=== PATIENT | male | born 1970 | race Caucasian/White ===

== ENCOUNTER 2021-02-22 08:42 | Outpatient (CLI) | payer OTHER, SELFPAY ==
--- NOTE | ~2021-02-22 | CT_ITS ---
EXAMINATION: CT abdomen pelvis w con INDICATION: Pancreatic mass TECHNIQUE: Computed tomographic images of the abdomen and pelvis were obtained after the administrati on of 100 cc of Omnipaque 350 intravenous contrast. The dose-length product (DLP) was 391.90 mGy-cm. Automated exposure control and iterative reconstruction technique were employed. COMPARISON: 07/27/2018 FINDINGS: There is small to moderate size right pleural effusion. The heart size is normal. Passive a telectasis in the right lower lobe. There is an ill-defined mass in the head of the pancreas measurin g approximately 2.5 x 2.4 cm. There is chronic thrombosis of the portal vein with multiple upper abdo snehal collaterals. A 1.6 cm lesion of the left hepatic lobe previously measured 2.9 cm the gallbladde r, spleen, and adrenal glands are normal. The kidneys are unremarkable. There is a moderate volume of ascites. No pathologically enlarged abdominal or pelvic lymph nodes are identified. There is no free intraperitoneal gas or evidence of bowel obstruction. Colonic diverticulosis is present without evid ence of diverticulitis. There are bridging osteophytes at multiple levels in the spine, consistent wi th diffuse idiopathic skeletal hyperostosis (DISH). IMPRESSION: 1. Pancreatic head mass with slight decrease in size, likely adenocarcinoma. 2. Chronic portal vein thrombosis. 3. Left hepatic lobe mass with slight decrease in size, consistent with metastatic disease. Reviewed, dictated and finalized at location B. IMPRESSION: 1. Pancreatic head mass with slight decrease in size, likely adenocarcinoma. 2. Chronic portal vein thrombosis. 3. Left hepatic lobe mass with slight decrease in size, consistent with metasta tic disease.
[2021-02-22 09:07] LABS: Prothrombin Time 54.5 Seconds (11.1-14.7)
[2021-02-22 10:05] LABS: INR 6.5
== END 2021-02-22 08:43 | disposition home or self-care (01) ==
LOC: ANHIMG 08:43
PROVIDERS: PCP Family Medicine; Visit Provider Physician Assistant
DX: K86.89 Other specified diseases of pancreas (principal); I81 Portal vein thrombosis
CPT/HCPCS: 36415; 74177; 85610; Q9967

== ENCOUNTER 2021-02-22 11:19 | Emergency (ER) | payer OTHER, SELFPAY ==
[2021-02-22] VITALS (10 sets, daily range): BP systolic 88–99; BP diastolic 60–73; PULSE 89–112; RESP 16–18; TEMP 36.2–36.8; O2SAT 99–100
--- NOTE | 2021-02-22 13:01 | ED.RECABL ---
HPI - Recheck/Abnormal Lab/Rx General Chief Complaint: Recheck/Abnormal Lab/Rx Stated Complaint: abnormal labs and CT scan Time Seen by Provider: 02/22/21 12:26 Source: patient Mode of arrival: ambulatory Limitations: no limitations History of Present Illness HPI narrative: 50-year-old male Patient had outpatient labs done His understanding is that his PCPs office directed him to come to the ER for evaluation because his INR was 6.5 He does not take Coumadin, he takes Xarelto He takes Xarelto because Center started him on it 3 years ago after he was admitted there for pancreatitis He had stents that were removed a year and a half ago To the best of his knowledge she has never actually had DVT, PE, or atrial fibrillation, etc. He is not having any unusual bleeding or bruising that he does not usually have Additionally on his labs from a couple days ago he had a modest anemia and a low potassium and a modest bump in his bilirubin He had a CT scan earlier today that showed a possible mass in the head of the pancreas and the liver which were possibly consistent with adenocarcinoma however both were smaller compared to prior study done here 2 years ago He has not been drinking for several months but has not been completely abstinent since his Center stay Related Data Allergies Allergy/AdvReac Type Severity Reaction Status Date / Time amoxicillin Allergy Unknown Confusion Verified 02/22/21 12:25 Review of Systems Review of Systems: All systems reviewed & are unremarkable except as noted in HPI and below Constitutional: Constitutional: Denies chills, Reports fatigue, Denies fever(s), Denies headache(s) and Reports weakness Comments: Weight loss Eyes: Eyes: Reports no additional eye complaints and Denies change in vision ENT: Denies headache(s) and Denies sore throat Cardiovascular: Cardiovascular: Denies chest pain and Denies dyspnea Respiratory: Respiratory: Denies cough and Denies dyspnea Gastrointestinal: Gastrointestinal: Denies abdominal pain, Denies bloating, Denies diarrhea, Reports nausea and Denies vomiting Comments: Poor appetite Genitourinary: Genitourinary: Denies dysuria and Denies urinary frequency Musculoskeletal: Musculoskeletal: Reports myalgias, Denies deformity, Denies arthralgias, Denies joint swelling and Denies numbness Integumentary/Breasts: Skin/Breast: Denies rash and Denies wounds Neurologic: Denies headache(s), Denies focal weakness and Denies numbness Psychiatric: Psychiatric: Reports no additional psychiatric complaints Endocrine: Endocrine: Reports no additional endocrine complaints Hematologic/Lymphatic: Hematologic/Lymphatic: Reports no additional hematologic/lymphatic complaints Allergic/Immunologic: Allergic/Immunologic: Reports no additional allergic/immunologic complaints [facility] Past Medical History Medical History (Updated 02/22/21 @ 16:01 by Cristo Naylor MD) Alcohol abuse GERD with esophagitis History of pancreatitis Malnutrition Portal vein thrombosis Social History Social History (Updated 02/20/21 @ 10:56 by Greta Espino [facility]) Smoking status: Never smoker Alcohol intake: current Drinks per week: 1 Substance use: never Substance use type: does not use Gender identity (if verbalized by the patient): Male Exam Const: General: cooperative, no acute distress and alert Orientation/consciousness: patient oriented x3 (alert) HENMT: Head: normal to inspection, normocephalic, atraumatic, no contusions and no hematomas Ears: external ears normal General nose exam: no epistaxis Eyes: Conjunctivae: conjunctivae normal EOM: EOMs intact bilaterally Neck: Neck: normal visual inspection, supple and no JVD Resp: Effort & Inspection: normal respiratory effort and not labored Auscultation: clear to auscultation bilaterally, no rales, no rhonchi, no wheezes and other (BS =) Cardio: Rate: regular rate Rhythm: regular rhythm Heart sounds: no mu
[2021-02-22 14:14] LABS: Basophils Absolute Auto 0.1 K/mm3 (0.0-0.1); Basophils Percent Auto 1.5 % (0.2-1.2); Hematocrit 29.9 % (42.0-52.0); Immature Granulocyte Absolute 0.01 K/mm3 (0.00-0.031); Immature Granulocyte Percent A 0.2 % (0-0.5); Lymphocytes Absolute Auto 1.22 K/mm3 (0.9-3.2); Lymphocytes Percent Auto 30.3 % (18.3-44.2); Mean Corpuscular HGB Conc 33.4 g/dl (32-36); Mean Corpuscular Hemoglobin 32.9 pg (26-34); Mean Corpuscular Volume 98.4 fl (80-100); Mean Platelet Volume 9.2 fl (7.4-10.4); Monocytes Absolute Auto 0.7 K/mm3 (0.1-0.6); Monocytes Percent Auto 16.6 % (2.6-8.5); Neutrophils Percent Auto 50.4 % (45.5-73.1); Platelet Count Result 180 k/mm3 (150-375); Red Blood Count 3.04 M/mm3 (4.6-6.20); Red Cell Distribution Width 15.9 % (11.5-14.5)
[2021-02-22 14:42] LABS: Alanine Aminotransferase 17 U/L (4-50); Alkaline Phosphatase 152 U/L (38-126); Anion Gap 5 mmol/L (8-16); Aspartate Amino Transferase 55 U/L (17-59); Bilirubin,Total 2.2 mg/dL (0.2-1.3); Blood Urea Nitrogen 8 mg/dL (9-20); Calcium 8.5 mg/dL (8.4-10.2); Carbon Dioxide 32 mmol/L (22-30); Chloride 94 mmol/L (98-107); Estimated CRCL calculation 122 ml/min; Estimated Glomerular Filt Rate > 60; Glucose 133 mg/dL (65-110); Lipase 154 U/L (23-300); Magnesium 1.4 mg/dL (1.6-2.3); Potassium 2.8 mmol/L (3.4-5.0); Sodium 131 mmol/L (137-145)
[2021-02-22] MEDS: LACTATED RINGERS 1,000 ML 999 ML IV CONT (14:45)
[2021-02-22] MEDS: POTASSIUM CHLORIDE 20 MEQ PACKET (FOR LIQUID) 40 MEQ PO (14:45)
--- NOTE | 2021-02-22 16:00 | PC.NURSE ---
Patient called out to report pain with potassium infusion. Infusion noted to be running at 100ml/hr. Rate was decreased to 75ml/hr at this time. He reports decrease in pain after infusion rated decreased. Patient informed that infusion end time has been extended due to decreasing the rate for comfort. Patient reported that he was told it would only take two hours for the infusion and would like infusion done quickly so he can leave. I explained that for this infusion to end in the original 2 hour time frame, the rated would have needed to have been running at 130ml/hr but prior to me coming into the room another nurse had already decreased the rate to 100ml/hr and I had to decrease the rate to 75ml/hr for his comfort at this time. He was also informed that, due to the high risk nature of the potassium infusion, his safety, and his comfort, we are limited in how fast these fluids can infuse
--- NOTE | 2021-02-22 16:23 | PC.NURSE ---
Potassium drip lowered at 1506 after thiamine drip was completed for pt comfort. Unable to chart back in time before Alvaro PEREZ made his documentation in [facility].
== END 2021-02-22 18:12 | disposition home or self-care (01) ==
PROVIDERS: Emergency Provider Emergency Medicine; PCP Family Medicine
DX: E87.6 Hypokalemia (principal); K90.9 Intestinal malabsorption, unspecified; Z87.19 Personal history of other diseases of the digestive system; Z79.01 Long term (current) use of anticoagulants
CPT/HCPCS: 36415; 74177; 80053; 83690; 83735; 85025; 85610; 96365; 96366; 96367; 99284; A9270; J3411; J3480; J7060; J7120; Q9967

== ENCOUNTER 2021-05-03 13:31 | Inpatient (IN) | payer OTHER, SELFPAY ==
[2021-05-03] VITALS (9 sets, daily range): BP systolic 91–110; BP diastolic 60–90; PULSE 117–147; RESP 14–20; TEMP 36.8–38.1; O2SAT 95–100; BMI 18.3
--- NOTE | ~2021-05-03 | XR_ITS ---
EXAMINATION: XR chest 1V portable DATE: 05/03/2021 14:24 INDICATION: Weakness. TECHNIQUE: A single frontal view of the chest was obtained. COMPARISON: CT abdomen and pelvis 02/22/2021 FINDINGS: There is a moderate-sized right pleural effusion. There are airspace opacities at right kem g base. No pneumothorax. The heart size is normal. IMPRESSION: 1. Moderate-sized right pleural effusion again seen. 2. Airspace opacities at right lung base, likely atelectasis. Reviewed, dictated and finalized at location A.
--- NOTE | ~2021-05-03 | US_ITS ---
EXAMINATION: US paracentesis abd w/image DATE: 05/04/2021 11:41 INDICATION: Cirrhosis and ascites TECHNIQUE: The procedure and its risks and benefits were discussed with the patient. Potential risks discussed included bleeding and infection. The skin was prepared and draped in sterile fashion. 1% li docaine was used for local anesthesia. Under ultrasound guidance, a 5 Fr catheter with trochar was ad vanced into the ascites in the right lower quadrant. Fluid was aspirated into vacuum bottles. The cat heter was removed, and a dressing was applied. There were no immediate complications. FINDINGS: Ultrasound images demonstrate ascites and the catheter within the fluid. IMPRESSION: 1. Successful ultrasound-guided paracentesis yielding 4200 mL of clear yellow fluid. Reviewed, dictated and finalized at location A.
--- NOTE | ~2021-05-03 | CT_ITS ---
EXAMINATION: CT abdomen pelvis w con DATE: 05/03/2021 14:58 INDICATION: Liver failure TECHNIQUE: Computed tomography (CT) of the abdomen and pelvis was performed with 100 cc Omnipaque 350 intravenous contrast. The dose-length product was 486.59 mGy-cm. Automated exposure control and iter ative reconstruction technique were employed. COMPARISON: Comparison to multiple prior studies sequentially, with oldest reviewed study dated 07/27. FINDINGS: There is cirrhosis of the liver with diffuse fatty infiltration. There is moderate ascites. There is a complicated cystic pancreatic head mass which is ill-defined. There is chronic portal vei n thrombosis with cavernous transformation. The previously visualized hypoenhancing mass of the left hepatic lobe is not well demonstrated on the current study. The spleen, adrenal glands and kidneys ar e unremarkable. There is diverticulosis without evidence for diverticulitis. No significant lymphaden opathy. No free air. No focal lytic or blastic lesion. There is a moderate right pleural effusion. Ri ght basilar compressive atelectasis. Heart size is normal. No evidence for aortic aneurysm or dissect ion. Nonobstructive bowel gas pattern. There is diffuse edema of the gastric wall, nonspecific. Canno t exclude gastritis. IMPRESSION: 1. Cirrhosis of the liver with diffuse fatty infiltration. Chronic portal vein thrombosis with cavern ous transformation. 2: Moderate ascites. 3: Complex ill-defined cystic mass of the pancreatic head, suspicious for adenocarcinoma. 4: Moderate right pleural effusion with underlying compressive atelectasis. Reviewed, dictated and finalized at location B. IMPRESSION: 1. Cirrhosis of the liver with diffuse fatty infiltration. Chronic portal vein thrombosis with cavernous transformation. 2: Moderate ascites. 3: Complex ill-defined cystic mass of the pancreatic head, suspicious for adeno carcinoma. 4: Moderate right pleural effusion with underlying compressive atelectasis.
--- NOTE | ~2021-05-03 | US_ITS ---
EXAMINATION: US paracentesis abd w/image DATE: 05/07/2021 13:36 INDICATION: Ascites. TECHNIQUE: The procedure and its risks, benefits, and alternatives were discussed with the patient. P otential risks discussed included bleeding and infection. The skin was prepped and draped in sterile fashion. 1% lidocaine was used for local anesthesia. Under ultrasound guidance, a 5 Fr catheter with trochar was advanced into the ascites in the right lower quadrant. Fluid was aspirated. The catheter was removed, and a dressing was applied. There were no immediate complications. FINDINGS: Ultrasound images demonstrate ascites and the catheter within the fluid. IMPRESSION: 1. Successful ultrasound-guided paracentesis yielding 5000 mL of clear, yellow fluid. Reviewed, dictated and finalized at location A.
[2021-05-03 14:31] LABS: Basophils Percent Auto 0.1 % (0.2-1.2); Eosinophils Percent Auto 0.3 % (0-4.4); Hemoglobin 10.5 g/dL (14.0-18.0); Immature Granulocyte Absolute 0.02 K/mm3 (0.00-0.031); Immature Granulocyte Percent A 0.3 % (0-0.5); Immature Platelet Fraction Pct 3.5 % (0.9-11.2); Lymphocytes Absolute Auto 0.97 K/mm3 (0.9-3.2); Lymphocytes Percent Auto 12.2 % (18.3-44.2); Mean Corpuscular HGB Conc 33.9 g/dl (32-36); Mean Corpuscular Hemoglobin 32.6 pg (26-34); Mean Corpuscular Volume 96.3 fl (80-100); Mean Platelet Volume 10.3 fl (7.4-10.4); Monocytes Absolute Auto 0.5 K/mm3 (0.1-0.6); Monocytes Percent Auto 6.3 % (2.6-8.5); Neutrophils Absolute Auto 6.5 K/mm3 (1.3-6.7); Neutrophils Percent Auto 80.8 % (45.5-73.1); Platelet Count Result 52 k/mm3 (150-375); Red Blood Count 3.22 M/mm3 (4.6-6.20); Red Cell Distribution Width 17.3 % (11.5-14.5)
[2021-05-03 14:36] LABS: INR 1.7; Prothrombin Time 19.6 Seconds (11.1-14.7)
[2021-05-03 14:37] LABS: Partial Thromboplastin Time 38.3 SECONDS (22.3-36.8)
[2021-05-03 14:42] LABS: Alanine Aminotransferase 19 U/L (4-50); Alkaline Phosphatase 168 U/L (38-126); Anion Gap 15 mmol/L (8-16); Aspartate Amino Transferase 45 U/L (17-59); Bilirubin,Total 4.4 mg/dL (0.2-1.3); Blood Urea Nitrogen 13 mg/dL (9-20); Calcium 8.1 mg/dL (8.4-10.2); Carbon Dioxide 23 mmol/L (22-30); Chloride 92 mmol/L (98-107); Estimated CRCL calculation 105 ml/min; Estimated Glomerular Filt Rate > 60; Glucose 135 mg/dL (65-110); Lipase 149 U/L (23-300); Potassium 2.8 mmol/L (3.4-5.0); Sodium 130 mmol/L (137-145)
[2021-05-03] MEDS: ONDANSETRON INJ 4 MG/2 ML VIAL IV PUSH (14:43)
[2021-05-03] MEDS: SODIUM CHLORIDE 0.9% IV 1,000 ML 999 ML IV CONT ×2 (14:43→16:45)
[2021-05-03] MEDS: FAMOTIDINE 20 MG/2 ML VIAL IV PUSH (14:44)
[2021-05-03 15:05] LABS: Ammonia < 9 umol/L (9-30); Ethanol < 10 mg/dL (<10)
[2021-05-03] MEDS: POTASSIUM CHLORIDE 20 MEQ PACKET (FOR LIQUID) 40 MEQ PO (15:33)
[2021-05-03 15:43] LABS: Hepatitis B Surface Antigen Negative (Negative)
[2021-05-03 15:49] LABS: HAV RESULT Negative (Negative); Hepatitis B Core IgM Result Negative (Negative)
--- NOTE | 2021-05-03 15:57 | PC.NURSE ---
Called to have blood test added on to blood already in lab.
[2021-05-03 16:01] LABS: Hepatitis C Virus Antibody Negative (Negative)
[2021-05-03 16:51] LABS: Add Urine Microscopic? YES; Appearance Urine Clear (Clear); Bilirubin Urine Negative (Negative); Blood Urine Negative (Negative); Color Urine Amber (Yellow); Glucose Urine UA Negative (Negative); Ketones Urine Trace mg/dL (Negative); Leukocyte Esterase Ur Negative LEU/UL (Negative); Mucus Urine Rare /lpf; Nitrate Urine Negative (Negative); Protein Urine 1+ mg/dL (Negative); Urobilinogen Urine Negative mg/dL (<2.0); WBC Urine 0-3 /hpf
--- NOTE | 2021-05-03 16:58 | ED.GENADULT ---
HPI - General Adult General Chief complaint: Nausea/Vomiting/Diarrhea <Alejandro Smart PA-C - Last Filed: 05/03/21 17:09> Stated complaint: diarrhea <Alejandro Smart PA-C - Last Filed: 05/03/21 17:09> Time Seen by Provider: 05/03/21 13:48 <Alejandro Smart PA-C - Last Filed: 05/03/21 17:09> Source: patient, RN notes reviewed and old records reviewed <Alejandro Smart PA-C - Last Filed: 05/03/21 17:09> Mode of arrival: ambulatory <Alejandro Smart PA-C - Last Filed: 05/03/21 17:09> Limitations: no limitations <Alejandro Smart PA-C - Last Filed: 05/03/21 17:09> History of Present Illness HPI narrative: Patient is a 50-year-old male who presents to emergency department for evaluation of diarrhea for the last several days patient gives history of chronic pancreatitis and alcohol abuse he is scheduled to see hepatology at [facility] in the next several weeks he lives at home by himself and notes that he is becoming more deconditioned and weak patient denies any vomiting does note nausea denies fever. Patient last drank over a week ago. He presents with his son. On arrival he is denying any pain denies any recent falls <Alejandro Smart PA-C - Last Filed: 05/03/21 17:09> Related Data Home medications: Home Medications Medication Instructions Recorded Confirmed [id number] [Creon] 1 cap PO BIDWM 05/03/21 05/03/21 <Alejandro Smart PA-C - Last Filed: 05/03/21 17:09> Allergies/adverse reactions: Allergies Allergy/AdvReac Type Severity Reaction Status Date / Time amoxicillin Allergy Unknown Confusion Verified 05/03/21 18:46 <Alejandro Smart PA-C - Last Filed: 05/03/21 17:09> Review of Systems Review of Systems: All systems reviewed & are unremarkable except as noted in HPI and below <Alejandro Smart PA-C - Last Filed: 05/03/21 17:09> PMFSH Past Medical History Medical History: Medical History Alcohol abuse GERD with esophagitis History of pancreatitis Malnutrition Portal vein thrombosis <Alejandro Smart PA-C - Last Filed: 05/03/21 17:09> Family History Family History: Family History (Updated 05/03/21 @ 19:02 by ROSENDO Garcia) Father Pancreatitis <Alejandro Smart PA-C - Last Filed: 05/03/21 17:09> Social History Social History: Social History Smoking status: Never smoker Alcohol intake: current Drinks per week: 1 Substance use: never Substance use type: does not use Gender identity (if verbalized by the patient): Male Spiritual care concerns: No <Alejandro Smart PA-C - Last Filed: 05/03/21 17:09> Exam Narrative: GENERAL: Chronically ill-appearing, mal-nourished, and in no acute distress. HEAD: Normocephalic, atraumatic. EYES: PERRLA and EOMI. slight scleral icterus ENT: Nares clear, no rhinorrhea or epistaxis. Mucous membranes moist. NECK: Supple. No adenopathy or masses. CHEST: Clear to auscultation. No respiratory distress. No wheezes rales or rhonchi HEART: Regular rate and rhythm. No murmur heard. Normal peripheral pulses. ABDOMEN: Soft, nontender, distended EXTREMITIES: Normal range of motion. No edema. SKIN: Warm, dry, no rash. NEURO: No focal deficits. Alert and oriented x3. Cranial nerves II through XII grossly intact PSYCH: Normal mood and affect. <Alejandro Smart PA-C - Last Filed: 05/03/21 17:09> Course Course Emergency Course: Patient presented for evaluation of diarrhea and weakness discussions were made with the GI team at [facility] who recommended the patient can stay at [place] with nothing to be done at this time and that he can follow-up with this plan visit. Discussion was made with our side panel hanger Dr. Almendarez will consult on the patient. Discussion was also made with the hospitalist who has agreed to accept the
[2021-05-03 17:00] LABS: Specific Grav Ur 1.005 (1.001-1.035)
[2021-05-03] MEDS: MAGNESIUM SULF 2 GM/WATER 50ML 2 GM/50 ML BAG IVPB (17:01)
--- NOTE | 2021-05-03 17:12 | ECG_ITS ---
Measurements Intervals [place] Rate: 122 P: 68 SD: 137 QRS: 3 QRSD: 80 T: -41 QT: 334 QTc: 477 Interpretive Statements SINUS OR ECTOPIC ATRIAL TACHYCARDIA LOW QRS VOLTAGE IN LIMB LEADS CANNOT RULE OUT SEPTAL INFARCT, AGE INDETERMINATE BORDERLINE ST-T WAVE ABNORMALITY- DIFFUSE LEADS BASELINE ARTIFACT- II, III, AVR, AVL, AVF, V1-V6 ABNORMAL ECG Electronically Signed On 05-04-2021 8:43:51 CDT by Andrea Jansen D.O.
[2021-05-03] MEDS: THIAMINE HCL 100 MG TABLET PO (17:46)
[2021-05-03] MEDS: chlordiazePOXIDE (*CRX) 25 MG CAPSULE PO (17:46)
--- NOTE | 2021-05-03 18:44 | ADMGEN ---
This patient, Zackary Hussein, was admitted to IMU Room 214-01 at 1840. Patient/family oriented to hospital policies and general routines including ID bracelet, bed and alarms, visiting hours, pain management, procedures, bathroom and other care routines, personal items, smoking policy, room service/diet, and visiting hours. Information on how to activate the Rapid Response Team has been discussed. Patient/Family are encouraged to report perceived risks to care and to ask questions if they do not understand what they are told or what they should do.
[2021-05-03] MEDS: LACTATED RINGERS 1,000 ML 125 ML IV CONT (22:16)
--- NOTE | 2021-05-03 23:37 | PM.IMHP ---
H&P: HPI History of Present Illness Date/Time: 05/03/21 23:37 this is a 50-year-old male patient who has a history of alcoholism. The patient stated that he last drank about a week ago. The patient stated that he tried to stop drinking several times but was unable to quit. Patient had a previous CT scan that showed a possible mass in head of the pancreas and the liver which possibly consistent with adeno carcinoma however both her smaller compared to prior study done here 2 years ago. Patient was started on Xarelto approximately 3 years ago but was taken off of it because his INR was 6.5. The patient presented to the emergency room today for evaluation of diarrhea for the last several days. He said the last time he had diarrhea was this morning. He has a history of chronic pancreatitis and alcohol abuse. The patient is scheduled to see bread baker at [facility] on May 16. The patient is becoming more deconditioned and weak. Patient appears jaundiced. His H&H is 10.5 and 31.0. Sodium 130 and potassium 2.8. Chloride 92. Bilirubin is 4.4 magnesium is low at 1.0 calcium 8.1. Alkaline phosphatase 168. Abdominal pelvis CT was read as the following 1. Cirrhosis of the liver with diffuse fatty infiltration. Chronic portal vein thrombosis with cavernous transformation. 2: Moderate ascites. 3: Complex ill-defined cystic mass of the pancreatic head, suspicious for adenocarcinoma. 4: Moderate right pleural effusion with underlying compressive atelectasis. Dr. Fontanez has been consulted and agrees to see the patient. The patient continues to vomit bile. The patient was given IV fluids, Pepcid, Zofran, potassium oral, magnesium IV, potassium IV, Librium p.o. and thiamin p.o. in the emergency room. The patient is being admitted for observation status on the date of service of 05/03/2021. Chief Complaint: diarrhea Review of Systems Review of Systems: All systems reviewed & are unremarkable except as noted in HPI and below Constitutional: Constitutional: Reports as per HPI and Reports no additional constitutional complaints Eyes: Eyes: Reports as per HPI and Reports no additional eye complaints ENT: Reports system reviewed and no additional complaints, except as documented and Reports Normal hearing present Cardiovascular: Cardiovascular: Reports no additional cardiovascular complaints Respiratory: Respiratory: Reports no additional respiratory complaints and Reports no additional respiratory complaints Gastrointestinal: Gastrointestinal: Reports as per HPI and Reports no additional gastrointestinal complaints Musculoskeletal: Musculoskeletal: Reports no additional musculoskeletal complaints Integumentary/Breasts: Skin/Breast: Reports system reviewed and no additional complaints, except as docu and Reports as per HPI Neurologic: Reports system reviewed and no additional complaints, except as documented, Reports as per HPI and Reports Normal hearing present Psychiatric: Psychiatric: Reports no additional psychiatric complaints and Reports as per HPI Endocrine: Endocrine: Reports no additional endocrine complaints Hematologic/Lymphatic: Hematologic/Lymphatic: Reports no additional hematologic/lymphatic complaints Allergic/Immunologic: Allergic/Immunologic: Reports no additional allergic/immunologic complaints [facility] Past Medical History Medical History (Updated 05/03/21 @ 23:55 by Traci Palomares NP) Alcohol abuse Ascites Cirrhosis GERD with esophagitis History of pancreatitis Malnutrition Pancreatitis Portal vein thrombosis Surgical History Surgical History (Updated 05/03/21 @ 23:48 by Traci Palomares NP) History of ear surgery History of tonsillectomy Family History Family History (Updated 05/03/21 @ 23:48 by Traci Palomares NP) Father Pancreatitis Alcoholism Social History Social History (Updated 05/03/21 @ 23:49 by Traci Palomares NP) Social History: The patient stated that he has 2
[2021-05-03 23:54] LABS: Albumin Level 2.4 g/dL (3.5-5.1); Anion Gap 10 mmol/L (8-16); Blood Urea Nitrogen 10 mg/dL (9-20); Calcium 7.6 mg/dL (8.4-10.2); Carbon Dioxide 23 mmol/L (22-30); Chloride 97 mmol/L (98-107); Estimated CRCL calculation 107 ml/min; Estimated Glomerular Filt Rate > 60; Glucose 159 mg/dL (65-110); Magnesium 1.4 mg/dL (1.6-2.3); Potassium 2.7 mmol/L (3.4-5.0); Sodium 130 mmol/L (137-145)
[2021-05-04] VITALS (14 sets, daily range): BP systolic 81–100; BP diastolic 54–62; PULSE 97–122; RESP 15–20; TEMP 37.1–38.2; O2SAT 93–100
[2021-05-04] MEDS: MAGNESIUM SULF 4 GM/WATER100ML 4 GM/100 ML BAG IVPB (00:35)
[2021-05-04 02:08] LABS: Add Urine Microscopic? YES; Appearance Urine Clear (Clear); Bacteria Urine Trace /hpf; Bilirubin Urine 2+ (Negative); Blood Urine Negative (Negative); Color Urine Amber (Yellow); Glucose Urine UA Negative (Negative); Ketones Urine Trace mg/dL (Negative); Leukocyte Esterase Ur Negative LEU/UL (NEGATIVE); Mucus Urine Rare /lpf; Nitrate Urine Negative (Negative); Protein Urine 1+ mg/dL (Negative); WBC Urine 0-3 /hpf (0-3)
[2021-05-04 05:53] LABS: IFOB Positive Control Positive; Immunochemical Fecal Occult Bl Positive (N)
[2021-05-04 06:21] LABS: Basophils Percent Auto 0.1 % (0.2-1.2); Hematocrit 27.4 % (42.0-52.0); Hemoglobin 9.3 g/dL (14.0-18.0); Immature Granulocyte Absolute 0.06 K/mm3 (0.00-0.031); Immature Granulocyte Percent A 0.9 % (0-0.5); Immature Platelet Fraction Pct 3.3 % (0.9-11.2); Lymphocytes Absolute Auto 0.79 K/mm3 (0.9-3.2); Lymphocytes Percent Auto 11.7 % (18.3-44.2); Mean Corpuscular HGB Conc 33.9 g/dl (32-36); Mean Corpuscular Hemoglobin 32.7 pg (26-34); Mean Corpuscular Volume 96.5 fl (80-100); Mean Platelet Volume 10.3 fl (7.4-10.4); Monocytes Absolute Auto 0.8 K/mm3 (0.1-0.6); Monocytes Percent Auto 11.1 % (2.6-8.5); Neutrophils Absolute Auto 5.2 K/mm3 (1.3-6.7); Neutrophils Percent Auto 76.2 % (45.5-73.1); Platelet Count Result 38 k/mm3 (150-375); Red Blood Count 2.84 M/mm3 (4.6-6.20); Red Cell Distribution Width 17.4 % (11.5-14.5); White Blood Count 6.8 K/mm3 (4.5-10.0)
[2021-05-04 06:29] LABS: INR 1.8; Partial Thromboplastin Time 40.8 SECONDS (22.3-36.8); Prothrombin Time 20.4 Seconds (11.1-14.7)
[2021-05-04 06:34] LABS: Ammonia < 9 umol/L (9-30)
[2021-05-04 06:45] LABS: Magnesium 2.5 mg/dL (1.6-2.3)
[2021-05-04 07:21] LABS: Alanine Aminotransferase 19 U/L (4-50); Albumin Level 2.3 g/dL (3.5-5.1); Alkaline Phosphatase 166 U/L (38-126); Anion Gap 6 mmol/L (8-16); Aspartate Amino Transferase 76 U/L (17-59); Bilirubin,Total 6.3 mg/dL (0.2-1.3); Blood Urea Nitrogen 9 mg/dL (9-20); Calcium 7.5 mg/dL (8.4-10.2); Carbon Dioxide 28 mmol/L (22-30); Chloride 96 mmol/L (98-107); Estimated CRCL calculation 110 ml/min; Estimated Glomerular Filt Rate > 60; Glucose 196 mg/dL (65-110); Potassium 2.9 mmol/L (3.4-5.0); Sodium 130 mmol/L (137-145)
[2021-05-04] MEDS: THIAMINE HCL 200 MG/2 ML VIAL 100 MG IV PUSH (09:11)
[2021-05-04] MEDS: PANTOPRAZOLE SODIUM IV 40 MG VIAL IV PUSH ×2 (09:12→20:42)
[2021-05-04] MEDS: FOLIC ACID 1 MG/0.2 ML INJ IV PUSH (09:12)
--- NOTE | 2021-05-04 10:38 | PM.IMPN ---
Progress Note: A&P Assessment and Plan (1) Cirrhosis: Code(s): K74.60 - Unspecified cirrhosis of liver Status: Chronic Assessment and Plan: Status post paracentesis Supportive care (2) Hypokalemia: Code(s): E87.6 - Hypokalemia Status: Acute Assessment and Plan: Replace as needed. (3) Ascites: Code(s): R18.8 - Other ascites Status: Chronic Assessment and Plan: Status post paracenteses Continue to monitor (4) Pancreatitis: Code(s): K85.90 - Acute pancreatitis without necrosis or infection, unspecified Status: Chronic Assessment and Plan: Patient feel more comfortable today Will try clear liquid diet (5) Alcohol abuse: Code(s): F10.10 - Alcohol abuse, uncomplicated Status: Acute Assessment and Plan: On CIMO protocol (6) Diarrhea: Code(s): R19.7 - Diarrhea, unspecified Status: Acute Assessment and Plan: Likely secondary to all of the above Continue to monitor Stool status in process Subjective Date/time seen: 05/04/21 10:38 Review of Systems Review of Systems: All systems reviewed & are unremarkable except as noted in HPI and below Constitutional: Constitutional: Reports as per HPI and Reports no additional constitutional complaints Eyes: Eyes: Reports as per HPI and Reports no additional eye complaints ENT: Reports system reviewed and no additional complaints, except as documented and Reports Normal hearing present Cardiovascular: Cardiovascular: Reports no additional cardiovascular complaints Respiratory: Respiratory: Reports no additional respiratory complaints and Reports no additional respiratory complaints Gastrointestinal: Gastrointestinal: Reports as per HPI and Reports no additional gastrointestinal complaints Musculoskeletal: Musculoskeletal: Reports no additional musculoskeletal complaints Integumentary/Breasts: Skin/Breast: Reports system reviewed and no additional complaints, except as docu and Reports as per HPI Neurologic: Reports system reviewed and no additional complaints, except as documented, Reports as per HPI and Reports Normal hearing present Psychiatric: Psychiatric: Reports no additional psychiatric complaints and Reports as per HPI Endocrine: Endocrine: Reports no additional endocrine complaints Hematologic/Lymphatic: Hematologic/Lymphatic: Reports no additional hematologic/lymphatic complaints Allergic/Immunologic: Allergic/Immunologic: Reports no additional allergic/immunologic complaints Exam Narrative: Patient is laying in bed Const: General: comfortable, no acute distress, well developed, alert, awake and ill appearing chronically Nutritional Appearance: cachectic Orientation/consciousness: patient oriented x3 HENMT: Head: normal to inspection, normocephalic and atraumatic Ears: hearing grossly normal bilaterally General nose exam: Normal external nose present Face and sinus: normal facial exam Eyes: General: appearance normal, both eyes and all related structures Alignment and Position: alignment normal Sclera: scleral abnormality (Icterus) Pupils: Equal, round and reactive pupils present EOM: EOMs intact bilaterally Neck: Neck: normal visual inspection, full ROM, no lymphadenopathy, supple and no JVD Thyroid: thyroid normal Lymphatic: no lymphadenopathy noted Resp: Effort & Inspection: normal respiratory effort and able to speak in complete sentences Auscultation: clear to auscultation bilaterally, no crackles, no rales, no rhonchi and no wheezes Cardio: Jugular venous distension: no JVD Rate: regular rate Rhythm: regular rhythm Heart sounds: S1 normal heart sound present and S2 normal heart sound present GI: Inspection: normal to inspection GI Palp: Yes Soft to palpation, No Tenderness to palpation present (GI), No Guarding due to palpation present (GI), Yes No hepatosplenomegaly present and No Rebound tenderness present : General: Yes def
[2021-05-04] MEDS: LACTATED RINGERS 1,000 ML 125 ML IV CONT ×2 (12:45→21:47)
[2021-05-04 13:29] LABS: Appearance Peritoneal Fluid Hazy (Clear); Color Peritoneal Fluid Other (Colorless); Lymphocytes Peritoneal Fluid 38 %; Neutrophils Peritoneal Fluid 54 % (0-25); Source Peritoneal Fluid Peritoneal Fluid
[2021-05-04 13:30] LABS: Macrophages Peritoneal Fluid 8 %
--- NOTE | 2021-05-04 14:42 | WPDGICN ---
Assessment and Plan Assessment and plan (1) Decompensated hepatic cirrhosis: Code(s): K72.90 - Hepatic failure, unspecified without coma; K74.60 - Unspecified cirrhosis of liver Status: Acute Assessment and Plan: with weight loss, ascites, poor appetite 2g na diet, nutrition support, thiamine, stop eoth altogether (2) Ascites: Code(s): R18.8 - Other ascites Status: Chronic Assessment and Plan: s/p paracentesis, no SBP but given abx in er he is feeling better after paracentesis 2g na diet and low dose of diuretics if can tolerate (3) Pancreatic lesion: Code(s): K86.9 - Disease of pancreas, unspecified Status: Acute Assessment and Plan: he has a complicated pancreatic fistula with WON that required ercp with stents in 2019 can not rule out pancreatic mass he will need follow-up with his GI doctor at [facility], may need EUS with +/- ercp based on findings. will get ca19-9, ca125 (4) Malnutrition: Code(s): E46 - Unspecified protein-calorie malnutrition Status: Acute Assessment and Plan: weight loss and abnormal lytes replacing, nutrition support (5) Alcohol abuse: Code(s): F10.10 - Alcohol abuse, uncomplicated Status: Acute (6) Diarrhea: Code(s): R19.7 - Diarrhea, unspecified Status: Acute Assessment and Plan: stool samples pending he is also on creon (7) Hypokalemia: Code(s): E87.6 - Hypokalemia Status: Acute Assessment and Plan: replacing (8) Elevated liver enzymes: Code(s): R74.8 - Abnormal levels of other serum enzymes Status: Acute (9) Chronic pancreatitis due to chronic alcoholism: Code(s): K86.0 - Alcohol-induced chronic pancreatitis; F10.20 - Alcohol dependence, uncomplicated Status: Acute Assessment and Plan: on creon GI Consult Note Consult date/time: 05/04/21 14:42 Reason for consult: decompensated cirrhosis, ascites, diarrhea, pancreatic lesion HPI: Zackary Hussein is a 50 year old male with past medical history of necrotizing EtOH pancreatitis, chronic portal vein thrombosis at least since 2019, GERD w/ esophagitis with history of PD leak/fistula c/b fluid collection/walled off necrosis s/p ERCP with large fluid collection in the head of pancreas with fistulization to the bile duct and PD s/p PD and BD stent placements 11/2018 for transpapillary drainage, 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 He says that tried to slow down on his drinking and last time more than a week ago. He is here because last few days with diarrhea. Blood work showed hb 10.5, sodium 130, potassium 2.8, bilirubin is 4.4, magnesium, Alkaline phosphatase 168. I reviewed the abdominal pelvis CT, cirrhosis of the liver with diffuse fatty infiltration. Chronic portal vein thrombosis with cavernous transformation, moderate ascites, complex ill-defined cystic mass of the pancreatic head, suspicious for adenocarcinoma, moderate right pleural effusion with underlying compressive atelectasis. ER physician spoke with GI addictions recovery specialist at [facility], recommended medical treatment here with follow-up as outpatient (patient says that he has scheduled office visit with his GI first week of May). He underwent paracentesis and feeling better, started empirically on abx. Review of Systems Constitutional: Constitutional: Reports weakness and Reports weight loss Eyes: Eyes: Denies blurry vision ENT: Reports Normal hearing present Cardiovascular: Cardiovascular: Denies chest pain Respiratory: Respiratory: Denies dyspnea Gastrointestinal: Gastrointestinal: Reports diarrhea Genitourinary: Genitourinary: Denies dysuria Musculoskeletal: Musculoskeletal: Denies neck pain Integumentary/Breasts:
--- NOTE | 2021-05-04 16:15 | PC.NURSE ---
This patient, Zackary Hussein, was received from [facility] 214-1 on 05/04/21 at 1615. Patient/family oriented to unit policies and routines. Report received from Ramon PEREZ
--- NOTE | 2021-05-04 17:30 | PC.NURSE ---
This patient, Zackary Hussein, was transferred to [ [id number] ] on 05/04/21 at 1605. Personal belongings sent with patient. Report given to [ Radha Melvin]. Appropriate documentation sent with patient.
[2021-05-05] VITALS (19 sets, daily range): BP systolic 70–94; BP diastolic 42–76; PULSE 98–149; RESP 18–20; TEMP 36.4–39; O2SAT 91–99
[2021-05-05] MEDS: LACTATED RINGERS 1,000 ML 125 ML IV CONT (05:06)
[2021-05-05] MEDS: IBUPROFEN 400 MG TABLET PO (06:21)
[2021-05-05] MEDS: ALBUMIN HUMAN 25% 25 GM/100 ML 200 ML IVPB (06:22)
[2021-05-05 06:30] LABS: Lactic Acid Reflex 3.2 mmol/L (0.7-2.1)
[2021-05-05 06:31] LABS: Basophils Percent Auto 0.1 % (0.2-1.2); Hematocrit 28.8 % (42.0-52.0); Immature Granulocyte Absolute 0.11 K/mm3 (0.00-0.031); Immature Granulocyte Percent A 1.6 % (0-0.5); Immature Platelet Fraction Pct 2.7 % (0.9-11.2); Lymphocytes Absolute Auto 0.35 K/mm3 (0.9-3.2); Mean Corpuscular HGB Conc 34.7 g/dl (32-36); Mean Corpuscular Hemoglobin 33.1 pg (26-34); Mean Corpuscular Volume 95.4 fl (80-100); Mean Platelet Volume 9.9 fl (7.4-10.4); Monocytes Absolute Auto 0.9 K/mm3 (0.1-0.6); Monocytes Percent Auto 12.6 % (2.6-8.5); Neutrophils Absolute Auto 5.7 K/mm3 (1.3-6.7); Neutrophils Percent Auto 80.7 % (45.5-73.1); Red Blood Count 3.02 M/mm3 (4.6-6.20); Red Cell Distribution Width 17.6 % (11.5-14.5)
[2021-05-05 06:40] LABS: Alanine Aminotransferase 27 U/L (4-50); Albumin Level 2.3 g/dL (3.5-5.1); Alkaline Phosphatase 181 U/L (38-126); Anion Gap 9 mmol/L (8-16); Aspartate Amino Transferase 110 U/L (17-59); Bilirubin,Total 6.5 mg/dL (0.2-1.3); Blood Urea Nitrogen 6 mg/dL (9-20); Calcium 7.5 mg/dL (8.4-10.2); Carbon Dioxide 24 mmol/L (22-30); Chloride 97 mmol/L (98-107); Estimated CRCL calculation 112 ml/min; Estimated Glomerular Filt Rate > 60; Glucose 109 mg/dL (65-110); Potassium 2.7 mmol/L (3.4-5.0); Sodium 130 mmol/L (137-145)
[2021-05-05 06:54] LABS: Platelet Count Result 65 k/mm3 (150-375)
--- NOTE | 2021-05-05 07:47 | PM.EVENT ---
Event Note Event Note Event Note: 05/05/2021 at 6:00 a.m. Nursing staff called to notify me the patient is spiked a temperature to 102.2. On review the patient's chart has nausea patient is actually been hypotensive since 05/04/2021 and 9:00 a.m.. The patient does have chronic cirrhosis and had paracentesis with 4 L of peritoneal fluid removed yesterday. He was anticipate the patient would have some lower blood pressure. However his blood pressures did not rebound despite being on lactated Ringer's at 125 mL an hour. The patient had also had intermittent fevers since the evening of the . Patient's blood cultures returned positive for g negative bacilli on the . The patient is on empiric antibiotic therapy with cephalosporins due to concern for SBP with the patient having cloudy peritoneal fluid with a predominance of peritoneal fluid neutrophils. Given the change in the patient's condition this morning stat labs were obtained which demonstrated lactic acidosis the lactic acid 3.2. The patient's white count remains normal at 7000 with 80% neutrophils. The patient's platelet count had improved slightly to 65,000. He has persistent hyponatremia. His potassium had improved slightly yesterday but he did not receive additional supplementation in as a result his potassium is back down to 2.7 today. His creatinine remains stable at 0.6. However his bilirubin is worse from his admission value 4.4 up to 6.5. The patient's lactic acid on admission had been 2.0. The patient did receive 600 mg of ibuprofen x1 due to fever. Despite improvement in the patient's fevers patient's heart rate has actually climbed to the 140 to 150s Assessment and plan: 1. Severe sepsis due to Gram-negative bacteremia SBP-- Will give the patient 50 g of albumin help with intervascular volume expansion. Will also give LR 250 mL an hours x2 hours then resume rate to 125 mL an hour. Will continue antibiotic therapy with Cefazidime 2 g q.8 hours. Will transfer the patient to IMU for closer monitoring given persistent hypotension and severe sepsis. Will add INR to evaluate the patient's meld score. P.r.n. Tylenol has been ordered for fever but not to exceed 3 g daily. 2. Hypokalemia--patient will receive 40 mEq of potassium chloride IV and 40 p.o.. Will repeat potassium level at 2:00 p.m.. 60 minutes spent in critical care activities. Due to a high probability of clinically significant, life threatening deterioration, the patient required my highest level of preparedness to intervene emergently and I personally spent this critical care time directly and personally managing the patient. This critical care time included obtaining a history; examining the patient; pulse oximetry; ordering and review of studies; arranging urgent treatment with development of a management plan; evaluation of patient's response to treatment; frequent reassessment; and discussions with other providers. It was exclusive of separately billable procedures and treating other patients and teaching time. Please see Assessment and Plan section and the rest of the note for further information on patient assessment and treatment.
[2021-05-05] MEDS: POTASSIUM CHLORIDE 20 MEQ TABLET 40 MEQ PO (08:17)
[2021-05-05] MEDS: PANTOPRAZOLE SODIUM IV 40 MG VIAL IV PUSH ×2 (08:18→20:21)
[2021-05-05] MEDS: THIAMINE HCL 200 MG/2 ML VIAL 100 MG IV PUSH (08:19)
[2021-05-05 08:31] LABS: INR 2.2; Prothrombin Time 23.9 Seconds (11.1-14.7)
[2021-05-05] MEDS: FOLIC ACID 1 MG/0.2 ML INJ IV PUSH (08:38)
--- NOTE | 2021-05-05 08:46 | WPDGIPROGNO ---
Progress Note: A&P Assessment and Plan (1) Severe sepsis: Code(s): A41.9 - Sepsis, unspecified organism; R65.20 - Severe sepsis without septic shock Status: Acute Assessment and Plan: fever, hypotension and + blood cultures specimen from ascitic fluid- clotted but it was cloudy, probably source of infection already on iv antibiotics and now he is getting iv albumin will repeat ascitic fluid tomorrow (2) SBP (spontaneous bacterial peritonitis): Code(s): K65.2 - Spontaneous bacterial peritonitis Status: Acute Assessment and Plan: on medical treatment (3) Decompensated hepatic cirrhosis: Code(s): K72.90 - Hepatic failure, unspecified without coma; K74.60 - Unspecified cirrhosis of liver Status: Acute (4) Pancreatic lesion: Code(s): K86.9 - Disease of pancreas, unspecified Status: Acute Assessment and Plan: 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 will need follow-up with his GI doctor get tumor markers (5) Chronic pancreatitis due to chronic alcoholism: Code(s): K86.0 - Alcohol-induced chronic pancreatitis; F10.20 - Alcohol dependence, uncomplicated Status: Acute (6) Elevated liver enzymes: Code(s): R74.8 - Abnormal levels of other serum enzymes Status: Acute (7) Malnutrition: Code(s): E46 - Unspecified protein-calorie malnutrition Status: Acute (8) Portal vein thrombosis: Code(s): I81 - Portal vein thrombosis Status: Chronic Assessment and Plan: chronic at least since 2019, can not get blood thinners (9) Diarrhea: Code(s): R19.7 - Diarrhea, unspecified Status: Acute Assessment and Plan: stool studies pending also on creon Subjective Date/time seen: 05/05/21 08:46 Interval history: earlier this morning with fever, hypotension and preliminary report of positive blood culture Review of Systems Review of Systems: All systems reviewed & are unremarkable except as noted in HPI and below Exam Const: General: ill appearing chronically HENMT: Other: cachectic Eyes: General: appearance normal, both eyes and all related structures Neck: Neck: supple Resp: Auscultation: clear to auscultation bilaterally Cardio: Rate: regular rate GI: GI Palp: Yes Soft to palpation and Yes Tenderness to palpation present (GI) (diffusely, no rebound) Percussion: Yes Fluid wave present Auscultation: normal bowel sounds Skin: General skin exam: normal color Neuro: Speech: normal speech Extrem: General: pedal edema Psych: Mental Status: mental status grossly normal Objective Data Vital Signs Vital Signs: Vital Signs - 24 hr 05/04/21 08:49 05/04/21 10:00 05/04/21 12:00 Temperature 98.8 F Pulse Rate 99 99 97 Pulse Rate [Monitor] Respiratory Rate 20 Blood Pressure 81/54 L Pulse Oximetry 98 05/04/21 12:22 05/04/21 20:00 05/04/21 21:41 Temperature 98.8 F 99.9 F H Pulse Rate 98 112 H 112 H Pulse Rate [Monitor] 112 H Respiratory Rate 20 18 18 Blood Pressure 85/60 L 89/61 L Pulse Oximetry 100 93 99 05/04/21 22:39 05/05/21 00:00 05/05/21 06:00 Temperature 102.2 F H Pulse Rate 149 H Pulse Rate [Monitor] 112 H Respiratory Rate 18 Blood Pressure 89/61 L 90/52 L Pulse Oximetry 93 94 05/05/21 06:21 05/05/21 07:18 Temperature 102 F H 101.4 F H Pulse Rate Pulse Rate [Monitor] Respiratory Rate Blood Pressure Pulse Oximetry Intake/Output Intake/Output: Intake & Output 05/02/21 05/03/21 05/04/21 05/05/21 23:59 23:59 23:59 23:59 Intake Total 2550 3040 2050 Output Total 450 5700 200 Balance 2100 -2660 1850 Meds/Results Medications: Active Medications Generic Name Dose Route Start Last Admin Trade Name Freq PRN Reason Stop Dose Admin Acetaminophen 1,000 mg 05/05/21 07:46 Acetaminophen 500 Mg Tablet PO Q8H PRN Mild Pain (1-3) or Fever
[2021-05-05 09:14] LABS: Reflex Lactic Acid Yes or No Add Lactic
--- NOTE | 2021-05-05 09:49 | PM.IMPN ---
Progress Note: A&P Assessment and Plan (1) Cirrhosis: Code(s): K74.60 - Unspecified cirrhosis of liver Status: Chronic Assessment and Plan: Status post paracentesis Supportive care (2) Hypokalemia: Code(s): E87.6 - Hypokalemia Status: Acute Assessment and Plan: Replace as needed. (3) Ascites: Code(s): R18.8 - Other ascites Status: Chronic Assessment and Plan: Status post paracenteses Continue to monitor (4) Pancreatitis: Code(s): K85.90 - Acute pancreatitis without necrosis or infection, unspecified Status: Chronic Assessment and Plan: Patient feel more comfortable today Will try clear liquid diet (5) Alcohol abuse: Code(s): F10.10 - Alcohol abuse, uncomplicated Status: Acute Assessment and Plan: On CIWA protocol (6) Diarrhea: Code(s): R19.7 - Diarrhea, unspecified Status: Acute Assessment and Plan: Likely secondary to all of the above Continue to monitor Stool status in process (7) Hypotension: Code(s): I95.9 - Hypotension, unspecified Status: Acute Assessment and Plan: Likely secondary to removal of large ascites fluid. Patient has received fluid resuscitation last blood pressure was 80/52 Will administer albumin Patient has reaccumulated his ascites Continue to monitor Supportive care Sepsis workup in process On ceftazidime Subjective Date/time seen: 05/05/21 09:49 I feel fine Interval history: earlier this morning with fever, hypotension and preliminary report of positive blood culture Patient was transferred to IMU due to episode of hypotension. Review of Systems Review of Systems: All systems reviewed & are unremarkable except as noted in HPI and below Constitutional: Constitutional: Reports as per HPI and Reports no additional constitutional complaints Eyes: Eyes: Reports as per HPI and Reports no additional eye complaints ENT: Reports system reviewed and no additional complaints, except as documented and Reports Normal hearing present Cardiovascular: Cardiovascular: Reports no additional cardiovascular complaints Respiratory: Respiratory: Reports no additional respiratory complaints and Reports no additional respiratory complaints Gastrointestinal: Gastrointestinal: Reports as per HPI and Reports no additional gastrointestinal complaints Musculoskeletal: Musculoskeletal: Reports no additional musculoskeletal complaints Integumentary/Breasts: Skin/Breast: Reports system reviewed and no additional complaints, except as docu and Reports as per HPI Neurologic: Reports system reviewed and no additional complaints, except as documented, Reports as per HPI and Reports Normal hearing present Psychiatric: Psychiatric: Reports no additional psychiatric complaints and Reports as per HPI Endocrine: Endocrine: Reports no additional endocrine complaints Hematologic/Lymphatic: Hematologic/Lymphatic: Reports no additional hematologic/lymphatic complaints Allergic/Immunologic: Allergic/Immunologic: Reports no additional allergic/immunologic complaints Exam Narrative: Patient is laying in bed Const: General: cooperative, comfortable, no acute distress, well developed, alert, awake, Physically active and ill appearing chronically Nutritional Appearance: cachectic and thin Orientation/consciousness: oriented to person, oriented to place, oriented to time and patient oriented x3 Limitations: no limitations HENMT: Head: normal to inspection, No palpable skull fracture present, normocephalic and atraumatic Ears: hearing grossly normal bilaterally General nose exam: Normal external nose present Face and sinus: normal facial exam Eyes: General: appearance normal, both eyes and all related structures Alignment and Position: alignment normal Periorbital: periorbital findings normal Eyelids: eyelids normal Conjunctivae: conjunctivae normal Sclera: scleral abnormality (Icte
[2021-05-05 09:58] LABS: Lactic Acid 2.8 mmol/L (0.7-2.1)
[2021-05-05] MEDS: ALBUMIN HUMAN 25% 25 GM/100 ML 100 ML IVPB ×4 (12:13→23:04)
[2021-05-05 12:31] LABS: Lactic Acid Reflex 2.6 mmol/L (0.7-2.1)
[2021-05-05] MEDS: LACTATED RINGERS 1,000 ML 250 ML IV CONT (13:57)
[2021-05-05 14:25] LABS: Potassium 3.7 mmol/L (3.4-5.0)
[2021-05-05] MEDS: SODIUM CHLORIDE 0.9% IV 1,000 ML 999 ML IV CONT (17:23)
--- NOTE | 2021-05-05 17:28 | PM.EVENT ---
Event Note Event Note Event Note: I was called with patient's updated vitals last blood pressure was 75/50 patient has received adequate fluid resuscitation however has been refractory will transfer to intensive care unit for vasopressors. Discussed with Dr. Peralta
--- NOTE | 2021-05-05 18:25 | PC.NURSE ---
This patient, Zackary Hussein, was transferred to [ ICU-8 ] on 05/05/21 at 1815. Personal belongings sent with patient. Report given to [ CHRIS Mora ]. Appropriate documentation sent with patient.
--- NOTE | 2021-05-05 18:36 | PC.NURSE ---
This patient, Zackary Hussein, was received from [[id number] ] on 05/05/21 at 1836. Patient/family oriented to unit policies and routines
[2021-05-05] MEDS: LACTATED RINGERS 1,000 ML 75 ML IV CONT (18:46)
[2021-05-06] VITALS (15 sets, daily range): BP systolic 89–131; BP diastolic 65–84; PULSE 86–138; RESP 16–28; TEMP 36.4–37.5; O2SAT 93–100; BMI 19.8
[2021-05-06 04:54] LABS: Basophils Percent Auto 0.6 % (0.2-1.2); Eosinophils Absolute Auto 0.1 K/mm3 (0-0.3); Eosinophils Percent Auto 2.2 % (0-4.4); Hematocrit 26.8 % (42.0-52.0); Hemoglobin 8.6 g/dL (14.0-18.0); Immature Granulocyte Absolute 0.05 K/mm3 (0.00-0.031); Lymphocytes Absolute Auto 1.08 K/mm3 (0.9-3.2); Lymphocytes Percent Auto 21.4 % (18.3-44.2); Mean Corpuscular HGB Conc 32.1 g/dl (32-36); Mean Corpuscular Hemoglobin 33.2 pg (26-34); Mean Corpuscular Volume 103.5 fl (80-100); Mean Platelet Volume 9.9 fl (7.4-10.4); Monocytes Absolute Auto 0.9 K/mm3 (0.1-0.6); Monocytes Percent Auto 16.8 % (2.6-8.5); Neutrophils Absolute Auto 2.9 K/mm3 (1.3-6.7); Platelet Count Result 49 k/mm3 (150-375); Red Blood Count 2.59 M/mm3 (4.6-6.20); Red Cell Distribution Width 18.4 % (11.5-14.5); White Blood Count 5.1 K/mm3 (4.5-10.0)
[2021-05-06] MEDS: ALBUMIN HUMAN 25% 25 GM/100 ML 100 ML IVPB ×3 (05:05→17:39)
[2021-05-06 05:13] LABS: Alanine Aminotransferase 17 U/L (4-50); Albumin Level 3.1 g/dL (3.5-5.1); Alkaline Phosphatase 99 U/L (38-126); Anion Gap 8 mmol/L (8-16); Aspartate Amino Transferase 48 U/L (17-59); Bilirubin,Total 4.7 mg/dL (0.2-1.3); Blood Urea Nitrogen 7 mg/dL (9-20); Calcium 8.3 mg/dL (8.4-10.2); Carbon Dioxide 22 mmol/L (22-30); Chloride 99 mmol/L (98-107); Estimated CRCL calculation 116 ml/min; Estimated Glomerular Filt Rate > 60; Glucose 112 mg/dL (65-110); Potassium 3.2 mmol/L (3.4-5.0); Sodium 129 mmol/L (137-145)
[2021-05-06 05:16] LABS: Lactic Acid Reflex 1.5 mmol/L (0.7-2.1)
[2021-05-06 05:27] LABS: Magnesium 1.5 mg/dL (1.6-2.3); Phosphorus 1.2 mg/dL (2.5-4.5)
[2021-05-06 05:41] LABS: Burr Cells 2+ (NORMAL); Ovalocytes 2+ (NORMAL); Platelet Estimate Decreased (Adequate)
[2021-05-06] MEDS: POTASSIUM CHLORIDE 20 MEQ TABLET 40 MEQ PO (06:23)
[2021-05-06 07:55] LABS: INR 2.4; Prothrombin Time 25.3 Seconds (11.1-14.7)
[2021-05-06] MEDS: SODIUM CHLORIDE 0.9% IV 1,000 ML 75 ML IV CONT ×2 (08:16→20:44)
[2021-05-06] MEDS: FOLIC ACID 1 MG/0.2 ML INJ IV PUSH (08:18)
[2021-05-06] MEDS: PANTOPRAZOLE SODIUM IV 40 MG VIAL IV PUSH ×2 (08:45→20:43)
[2021-05-06] MEDS: THIAMINE HCL 200 MG/2 ML VIAL 100 MG IV PUSH (08:45)
[2021-05-06] MEDS: MAGNESIUM SULF 2 GM/WATER 50ML 2 GM/50 ML BAG IVPB (09:19)
[2021-05-06] MEDS: PHYTONADIONE INJ 10 MG/ML AMP IM (09:27)
[2021-05-06] MEDS: POTASSIUM PHOS,M-BASIC-D-BASIC 40 MMOL in SODIUM CHLORIDE 0.9% IV 250 ML 43.89 MMOL IVPB (10:22)
--- NOTE | 2021-05-06 11:24 | WPDCNINT ---
Assessment and Plan Assessment and plan (1) Severe sepsis: Code(s): A41.9 - Sepsis, unspecified organism; R65.20 - Severe sepsis without septic shock Status: Acute Assessment and Plan: Patient is suspected to be having SBP which is the source of sepsis. his blood culture 05/03 positive for Raoultella ornithinolytica Streptococcus anginosus on 2 separate sets it repeat set of blood cultures was sent on 05/05 and is pending at this time his lactic acid level has cleared and has normalized after IV fluids he is not requiring vasopressors at this time conservative IV fluid strategy due to overall volume overload and 3rd spacing in the form of ascites continue IV albumin continue ceftazidime (2) Hypotension: Code(s): I95.9 - Hypotension, unspecified Status: Acute Assessment and Plan: patient was hypertensive yesterday when he was transferred to ICU. Likely secondary to sepsis and fluid shift from paracentesis his blood pressure adequate now and map of 80 at this time his lactic acid level as cleared monitor closely (3) SBP (spontaneous bacterial peritonitis): Code(s): K65.2 - Spontaneous bacterial peritonitis Status: Acute Assessment and Plan: patient underwent paracentesis with 4 L fluid was removed on 05/04 fluid studies reviewed and showed increased neutrophilic concentration although Total counts were not done continue ceftazidime will discuss with GI regarding getting a repeat paracentesis (4) Chronic pancreatitis due to chronic alcoholism: Code(s): K86.0 - Alcohol-induced chronic pancreatitis; F10.20 - Alcohol dependence, uncomplicated Status: Acute Assessment and Plan: currently pain-free resume enzyme replacement (5) Decompensated hepatic cirrhosis: Code(s): K72.90 - Hepatic failure, unspecified without coma; K74.60 - Unspecified cirrhosis of liver Status: Acute Assessment and Plan: ammonia level and liver enzymes are normal bilirubin is improving and is at 4.7 (6) Pancreatic lesion: Code(s): K86.9 - Disease of pancreas, unspecified Status: Acute Assessment and Plan: patient has known complicated pancreatic lesion management will be deferred to his primary GI team at [facility] tumor markers were ordered and pending (7) Portal vein thrombosis: Code(s): I81 - Portal vein thrombosis Status: Chronic Assessment and Plan: known chronic portal vein thrombosis and patient was discontinued from anticoagulation. I am not aware of all the details but patient was told not to take Xarelto by his physician at [facility]. It appears chronic (8) Alcohol abuse: Code(s): F10.10 - Alcohol abuse, uncomplicated Status: Acute Assessment and Plan: patient states he has not had any alcohol for last 30 days he is on folic acid and thiamine monitor this time (9) Electrolyte abnormality: Code(s): E87.8 - Other disorders of electrolyte and fluid balance, not elsewhere classified Status: Acute Assessment and Plan: replace low potassium magnesium and phosphate (10) Diarrhea: Code(s): R19.7 - Diarrhea, unspecified Status: Acute Assessment and Plan: gastroenterology is following. 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 Patient Had had a previous CT scan that showed a possible mass in head of the pancreas an
[2021-05-06] MEDS: LIPASE/AMYLASE/PROTEASE 12,000 UNITS CAP 1 CAP PO (13:42)
[2021-05-06] MEDS: ACETAMINOPHEN 325 MG TABLET 650 MG PO (16:23)
[2021-05-06] MEDS: METOPROLOL TARTRATE INJ 5 MG/5 ML VIAL 2.5 MG IV PUSH (16:24)
--- NOTE | 2021-05-06 17:25 | WPDGIPROGNO ---
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 (2) SBP (spontaneous bacterial peritonitis): Code(s): K65.2 - Spontaneous bacterial peritonitis Status: Acute Assessment and Plan: on medical treatment with iv abx and albumin (3) Decompensated hepatic cirrhosis: Code(s): K72.90 - Hepatic failure, unspecified without coma; K74.60 - Unspecified cirrhosis of liver Status: Acute (4) Pancreatic lesion: Code(s): K86.9 - Disease of pancreas, unspecified Status: Acute Assessment and Plan: 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 will need follow-up with his GI doctor pending tumor markers (5) Chronic pancreatitis due to chronic alcoholism: Code(s): K86.0 - Alcohol-induced chronic pancreatitis; F10.20 - Alcohol dependence, uncomplicated Status: Acute (6) Elevated liver enzymes: Code(s): R74.8 - Abnormal levels of other serum enzymes Status: Acute (7) Malnutrition: Code(s): E46 - Unspecified protein-calorie malnutrition Status: Acute (8) Portal vein thrombosis: Code(s): I81 - Portal vein thrombosis Status: Chronic Assessment and Plan: chronic at least since 2019, can not get blood thinners (9) Diarrhea: Code(s): R19.7 - Diarrhea, unspecified Status: Acute Assessment and Plan: stool studies pending also on creon Subjective Date/time seen: 05/06/21 17:25 Interval history: moved to ICU because persistent low BP, required levophed and iv albumin Review of Systems Review of Systems: All systems reviewed & are unremarkable except as noted in HPI and below Exam Const: General: ill appearing chronically Other: frail HENMT: Other: cachectic Eyes: General: appearance normal, both eyes and all related structures Neck: Neck: supple Resp: Auscultation: clear to auscultation bilaterally Cardio: Rate: regular rate GI: GI Palp: Yes Soft to palpation and Yes Tenderness to palpation present (GI) (diffusely, no rebound) Percussion: Yes Fluid wave present Auscultation: normal bowel sounds Skin: General skin exam: normal color Neuro: Speech: normal speech Extrem: General: pedal edema Psych: Mental Status: mental status grossly normal Objective Data Vital Signs Vital Signs: Vital Signs - 24 hr 05/05/21 18:00 05/05/21 18:40 05/05/21 20:00 Temperature 97.8 F Pulse Rate 103 H 102 H 103 H Respiratory Rate 20 20 Blood Pressure 90/66 L 91/71 L Pulse Oximetry 97 98 05/05/21 22:00 05/06/21 00:00 05/06/21 02:00 Temperature 97.6 F Pulse Rate 98 86 92 Respiratory Rate 18 18 16 Blood Pressure 94/76 L 91/67 L 91/70 L Pulse Oximetry 99 100 95 05/06/21 04:00 05/06/21 06:00 05/06/21 08:00 Temperature 97.7 F 97.5 F L Pulse Rate 88 86 86 Respiratory Rate 22 H 20 21 H Blood Pressure 92/77 L 95/72 L 94/75 L Pulse Oximetry 97 99 100 05/06/21 10:00 05/06/21 12:00 05/06/21 14:00 Temperature 97.6 F Pulse Rate 95 98 108 H Respiratory Rate 16 20 20 Blood Pressure 95/72 L 93/70 L 114/84 Pulse Oximetry 98 97 98 05/06/21 16:00 05/06/21 16:23 05/06/21 16:24 Temperature 98.0 F 98 F Pulse Rate 138 H 135 H Respiratory Rate 28 H Blood Pressure 131/82 Pulse Oximetry 97 Intake/Output Intake/Output: Intake & Output 05/03/21 05/04/21 05/05/21 05/06/21 23:59 23:59 23:59 23:59 Intake Total 2550 3040 6510 3.333 Output Total 450 5700 400 1000 Balance 2100 -2660 6110 1053.333 Meds/Results Medications: Active Medications Generic
[2021-05-07] VITALS (15 sets, daily range): BP systolic 86–103; BP diastolic 68–81; PULSE 85–108; RESP 15–27; TEMP 36.8–36.9; O2SAT 96–100
[2021-05-07] MEDS: ALBUMIN HUMAN 25% 25 GM/100 ML 100 ML IVPB ×4 (00:09→17:55)
[2021-05-07 06:27] LABS: Hemoglobin 8.4 g/dL (14.0-18.0); Mean Corpuscular HGB Conc 33.6 g/dl (32-36); Mean Corpuscular Hemoglobin 33.3 pg (26-34); Mean Corpuscular Volume 99.2 fl (80-100); Mean Platelet Volume 9.4 fl (7.4-10.4); Platelet Count Result 49 k/mm3 (150-375); Red Blood Count 2.52 M/mm3 (4.6-6.20); Red Cell Distribution Width 18.6 % (11.5-14.5); White Blood Count 2.9 K/mm3 (4.5-10.0)
[2021-05-07 06:37] LABS: Prothrombin Time 22.1 Seconds (11.1-14.7)
[2021-05-07 06:38] LABS: Anion Gap 9 mmol/L (8-16); Blood Urea Nitrogen 6 mg/dL (9-20); Calcium 8.6 mg/dL (8.4-10.2); Carbon Dioxide 23 mmol/L (22-30); Chloride 103 mmol/L (98-107); Estimated CRCL calculation 160 ml/min; Estimated Glomerular Filt Rate > 60; Glucose 131 mg/dL (65-110); Magnesium 1.7 mg/dL (1.6-2.3); Partial Thromboplastin Time 46.6 SECONDS (22.3-36.8); Potassium 3.8 mmol/L (3.4-5.0); Sodium 135 mmol/L (137-145)
[2021-05-07] MEDS: THIAMINE HCL 200 MG/2 ML VIAL 100 MG IV PUSH (08:20)
[2021-05-07] MEDS: SODIUM CHLORIDE 0.9% IV 1,000 ML 75 ML IV CONT ×2 (08:20→21:50)
[2021-05-07] MEDS: FOLIC ACID 1 MG/0.2 ML INJ IV PUSH (08:20)
[2021-05-07] MEDS: PANTOPRAZOLE SODIUM IV 40 MG VIAL IV PUSH ×2 (08:21→21:11)
--- NOTE | 2021-05-07 09:13 | WPDINTPN ---
Progress Note: A&P Assessment and Plan (1) Severe sepsis: Code(s): A41.9 - Sepsis, unspecified organism; R65.20 - Severe sepsis without septic shock Status: Acute Assessment and Plan: Patient is suspected to be having SBP which is the source of sepsis. his blood culture 05/03 positive for Raoultella ornithinolytica Streptococcus anginosus on 2 separate sets it repeat set of blood cultures was sent on 05/05 and is negative till date his lactic acid level has cleared and has normalized after IV fluids he is not requiring vasopressors at this time conservative IV fluid strategy due to overall volume overload and 3rd spacing in the form of ascites continue IV albumin continue ceftazidime (2) Hypotension: Code(s): I95.9 - Hypotension, unspecified Status: Acute Assessment and Plan: patient was hypotensive when he was transferred to ICU. Likely secondary to sepsis and fluid shift from paracentesis Since arrival to ICU, his blood pressure has been adequate now and map of 80 at this time his lactic acid level as cleared monitor closely (3) SBP (spontaneous bacterial peritonitis): Code(s): K65.2 - Spontaneous bacterial peritonitis Status: Acute Assessment and Plan: patient underwent paracentesis with 4 L fluid was removed on 05/04 fluid studies reviewed and showed increased neutrophilic concentration although Total counts were not done continue ceftazidime He has a repeat paracentesis scheduled for today (4) Chronic pancreatitis due to chronic alcoholism: Code(s): K86.0 - Alcohol-induced chronic pancreatitis; F10.20 - Alcohol dependence, uncomplicated Status: Acute Assessment and Plan: currently pain-free resume enzyme replacement (5) Decompensated hepatic cirrhosis: Code(s): K72.90 - Hepatic failure, unspecified without coma; K74.60 - Unspecified cirrhosis of liver Status: Acute Assessment and Plan: ammonia level and liver enzymes are normal bilirubin is improving (6) Pancreatic lesion: Code(s): K86.9 - Disease of pancreas, unspecified Status: Acute Assessment and Plan: patient has known complicated pancreatic lesion management will be deferred to his primary GI team at [facility] tumor markers were ordered and pending (7) Portal vein thrombosis: Code(s): I81 - Portal vein thrombosis Status: Chronic Assessment and Plan: known chronic portal vein thrombosis and patient was discontinued from anticoagulation. I am not aware of all the details but patient was told not to take Xarelto by his physician at [facility]. It appears chronic (8) Alcohol abuse: Code(s): F10.10 - Alcohol abuse, uncomplicated Status: Acute Assessment and Plan: patient states he has not had any alcohol for last 30 days he is on folic acid and thiamine monitor this time (9) Electrolyte abnormality: Code(s): E87.8 - Other disorders of electrolyte and fluid balance, not elsewhere classified Status: Acute Assessment and Plan: replace low magnesium (10) Diarrhea: Code(s): R19.7 - Diarrhea, unspecified Status: Acute Assessment and Plan: gastroenterology is following. Giardia antigen, Cryptosporidium, stool WBC and other stool studies including culture and WBC have been sent and pending Stool C diff is ordered and pending Additional Plan DVT prophylaxis - SCDs Stress ulcer prophylaxis - PPI Nutrition - regular diet Code Status - Full Code Will transfer out of ICU today patient tolerates paracentesis without any issues Subjective Date/time seen: 05/07/21 09:13 Overnight events reviewed. Patient is afebrile. No new complaints this morning. He had 2 loose bowel movements overnight but no blood in it. He continues to have abdominal distention but no pain. Denies any chest pain shortness of breath fever chills or rigors. No coug
[2021-05-07] MEDS: MAGNESIUM SULF 2 GM/WATER 50ML 2 GM/50 ML BAG IVPB (09:35)
--- NOTE | 2021-05-07 11:06 | PCPTNOTE ---
Attempted PT evaluation this date, pt declined due to not feeling well. Will attempt again at a later date/time.
--- NOTE | 2021-05-07 11:50 | PCDIET ---
ICU Rounding Note: Patient NPO for diagnostic paracentesis. Last recorded weight is 85.5kg which is significantly increased from last review. Recommend re-weighing to ensure accuracy. Bowel Motility: BM x 1 today. Labs Reviewed: WBC (2.9), RBC (2.52), Hgb (8.4), Hct (25.0), Glu (131), BUN (6), Cr (0.5), Na (135), Alb (3.1) Meds Noted: Albumin, Creon, Fortaz, Folic Acid, Ativan, Magnesium Sulfate, Protonix, Thiamine, NS at 75mL/hr Additional Notes: Magnesium and potassium WNL today. No new PO4 level. Sacrum with stage II area. Scrotum macerated. Following daily in ICU rounds. Assessing/reassessing every 3 days.
--- NOTE | 2021-05-07 13:44 | PCPTNOTE ---
attempted PT evaluation 1345- pt refused, stated just had paracentesis, want to try later ; unable to perform eval at this time.
--- NOTE | 2021-05-07 15:08 | PCOTNOTE ---
Attempted to see pt. for evaluation. Pt. refused due to fatigue, reported he would try tomorrow. Will follow-up with eval when willing to participate.
[2021-05-07 15:36] LABS: Appearance Peritoneal Fluid Hazy (Clear); Color Peritoneal Fluid Yellow (Colorless); Source Peritoneal Fluid Peritoneal Fluid
[2021-05-07 15:37] LABS: Lymphocytes Peritoneal Fluid 45 %; Monocytes Peritoneal Fluid 33 %; Neutrophils Peritoneal Fluid 22 % (0-25); Nucleated Cells Peritoneal Flu 167 /uL (0-500); RBC Peritoneal Fluid 1354 /uL (0-100000)
--- NOTE | 2021-05-07 16:44 | WPDGIPROGNO ---
Progress Note: A&P Assessment and Plan (1) Severe sepsis: Code(s): A41.9 - Sepsis, unspecified organism; R65.20 - Severe sepsis without septic shock Status: Acute Assessment and Plan: better, off levophed with MAP 80 repeat ascitic fluid better had positive blood cultures on iv antibiotics now, normalization of lactic acid (2) SBP (spontaneous bacterial peritonitis): Code(s): K65.2 - Spontaneous bacterial peritonitis Status: Acute Assessment and Plan: on medical treatment with iv abx and albumin repeat fluid sample better diuretics discontinued because severe sepsis and bacteremia (3) Decompensated hepatic cirrhosis: Code(s): K72.90 - Hepatic failure, unspecified without coma; K74.60 - Unspecified cirrhosis of liver Status: Acute Assessment and Plan: 2g na diet (4) Pancreatic lesion: Code(s): K86.9 - Disease of pancreas, unspecified Status: Acute Assessment and Plan: 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 will need follow-up with his GI doctor pending tumor markers (5) Chronic pancreatitis due to chronic alcoholism: Code(s): K86.0 - Alcohol-induced chronic pancreatitis; F10.20 - Alcohol dependence, uncomplicated Status: Acute (6) Elevated liver enzymes: Code(s): R74.8 - Abnormal levels of other serum enzymes Status: Acute (7) Malnutrition: Code(s): E46 - Unspecified protein-calorie malnutrition Status: Acute Assessment and Plan: 2g na diet, nutritional support (8) Portal vein thrombosis: Code(s): I81 - Portal vein thrombosis Status: Chronic Assessment and Plan: chronic at least since 2019, can not get blood thinners (9) Diarrhea: Code(s): R19.7 - Diarrhea, unspecified Status: Acute Assessment and Plan: on creon Subjective Date/time seen: 05/07/21 16:44 Interval history: he is better, had 5 more liters removed, had BM without bleeding. No more need of levophed with MAP 80's Review of Systems Review of Systems: All systems reviewed & are unremarkable except as noted in HPI and below Exam Const: General: ill appearing chronically Other: frail HENMT: Other: cachectic Eyes: General: appearance normal, both eyes and all related structures Neck: Neck: supple Resp: Auscultation: clear to auscultation bilaterally Cardio: Rate: regular rate GI: GI Palp: Yes Soft to palpation and Yes Tenderness to palpation present (GI) (diffusely, no rebound) Percussion: Yes Fluid wave present (less after paracentesis today) Auscultation: normal bowel sounds Skin: General skin exam: normal color Neuro: Speech: normal speech Extrem: General: pedal edema Psych: Mental Status: mental status grossly normal Objective Data Vital Signs Vital Signs: Vital Signs - 24 hr 05/06/21 17:38 05/06/21 18:00 05/06/21 20:00 Temperature 99.5 F 99 F Pulse Rate 112 H 113 H Respiratory Rate 27 H 22 H Blood Pressure 95/68 L 89/70 L Pulse Oximetry 93 94 05/06/21 22:00 05/07/21 00:00 05/07/21 02:00 Temperature 98.5 F Pulse Rate 112 H 101 H 103 H Respiratory Rate 22 H 21 H 26 H Blood Pressure 92/65 L 86/68 L 102/74 Pulse Oximetry 95 96 98 05/07/21 04:00 05/07/21 06:00 05/07/21 08:00 Temperature 98.4 F 98.2 F Pulse Rate 100 104 H 101 H Respiratory Rate 27 H 24 H 22 H Blood Pressure 99/76 L 99/76 L 101/80 Pulse Oximetry 96 97 99 05/07/21 10:00 05/07/21 11:48 05/07/21 12:00 Temperature 98.4 F Pulse Rate 94 93 90 Respiratory Rate 24 H 22 H 22 H Blood Pressure 97/72 L 101/78 Pulse Oximetry 96 97 98 05/07/21 14:00 05/07/21 15:23 05/07/21 16:00 Temperature Pulse Rate 87 89 85 Respiratory Rate 17 17 15 Blood Pressure 103/81 95/71 L Pulse Oximetry 99 99 98 Intake/Output Intake/Output: Intake & Output 05/04/21 05/05/21 05/06/21 05/07/21 23:59 23:59 23:59 23:59 Intake T
[2021-05-07] MEDS: LIPASE/AMYLASE/PROTEASE 12,000 UNITS CAP 1 CAP PO (17:29)
[2021-05-08] VITALS (12 sets, daily range): BP systolic 88–103; BP diastolic 65–81; PULSE 101–115; RESP 18–24; TEMP 36.7–37.1; O2SAT 96–100
[2021-05-08] MEDS: ALBUMIN HUMAN 25% 25 GM/100 ML 100 ML IVPB ×4 (00:41→17:36)
[2021-05-08 04:51] LABS: Hematocrit 24.9 % (42.0-52.0); Hemoglobin 8.4 g/dL (14.0-18.0); Immature Platelet Fraction Pct 3.6 % (0.9-11.2); Mean Corpuscular HGB Conc 33.7 g/dl (32-36); Mean Corpuscular Hemoglobin 32.9 pg (26-34); Mean Corpuscular Volume 97.6 fl (80-100); Mean Platelet Volume 9.7 fl (7.4-10.4); Platelet Count Result 57 k/mm3 (150-375); Red Blood Count 2.55 M/mm3 (4.6-6.20); Red Cell Distribution Width 18.2 % (11.5-14.5); White Blood Count 3.4 K/mm3 (4.5-10.0)
[2021-05-08 05:03] LABS: Alanine Aminotransferase 15 U/L (4-50); Albumin Level 3.3 g/dL (3.5-5.1); Alkaline Phosphatase 100 U/L (38-126); Anion Gap 10 mmol/L (8-16); Aspartate Amino Transferase 42 U/L (17-59); Bilirubin,Total 3.2 mg/dL (0.2-1.3); Blood Urea Nitrogen 4 mg/dL (9-20); Calcium 8.5 mg/dL (8.4-10.2); Carbon Dioxide 22 mmol/L (22-30); Chloride 103 mmol/L (98-107); Estimated CRCL calculation 195 ml/min; Estimated Glomerular Filt Rate > 60; Glucose 119 mg/dL (65-110); Magnesium 1.6 mg/dL (1.6-2.3); Phosphorus 1.7 mg/dL (2.5-4.5); Potassium 3.4 mmol/L (3.4-5.0); Sodium 135 mmol/L (137-145)
--- NOTE | 2021-05-08 08:55 | WPDINTPN ---
Progress Note: A&P Assessment and Plan (1) Severe sepsis: Code(s): A41.9 - Sepsis, unspecified organism; R65.20 - Severe sepsis without septic shock Status: Acute Assessment and Plan: Patient is suspected to be having SBP which is the source of sepsis. his blood culture 05/03 positive for Raoultella ornithinolytica Streptococcus anginosus on 2 separate sets it repeat set of blood cultures was sent on 05/05 and is negative till date his lactic acid level has cleared and has normalized after IV fluids he is not requiring vasopressors at this time conservative IV fluid strategy due to overall volume overload and 3rd spacing in the form of ascites continue IV albumin for today continue ceftazidime (2) Hypotension: Code(s): I95.9 - Hypotension, unspecified Status: Acute Assessment and Plan: patient was hypotensive when he was transferred to ICU. Likely secondary to sepsis and fluid shift from paracentesis Since arrival to ICU, his blood pressure has been adequate now and map of 80 at this time his lactic acid level as cleared monitor closely (3) SBP (spontaneous bacterial peritonitis): Code(s): K65.2 - Spontaneous bacterial peritonitis Status: Acute Assessment and Plan: patient underwent paracentesis with 4 L fluid was removed on 05/04 fluid studies reviewed and showed increased neutrophilic concentration although Total counts were not done repeat paracentesis was done on 05/07 and 5 L fluid was removed. The cell counts appear much better on the fluid although patient has been on antibiotics for many days continue ceftazidime will discuss with ID regarding transition to p.o. and duration of antibiotic therapy (4) Chronic pancreatitis due to chronic alcoholism: Code(s): K86.0 - Alcohol-induced chronic pancreatitis; F10.20 - Alcohol dependence, uncomplicated Status: Acute Assessment and Plan: currently pain-free resume enzyme replacement which will be increased to t.i.d. with meals (5) Decompensated hepatic cirrhosis: Code(s): K72.90 - Hepatic failure, unspecified without coma; K74.60 - Unspecified cirrhosis of liver Status: Acute Assessment and Plan: ammonia level and liver enzymes are normal bilirubin is improving (6) Pancreatic lesion: Code(s): K86.9 - Disease of pancreas, unspecified Status: Acute Assessment and Plan: patient has known complicated pancreatic lesion management will be deferred to his primary GI team at [facility] tumor markers were ordered and pending (7) Portal vein thrombosis: Code(s): I81 - Portal vein thrombosis Status: Chronic Assessment and Plan: known chronic portal vein thrombosis and patient was discontinued from anticoagulation. I am not aware of all the details but patient was told not to take Xarelto by his physician at [facility]. It appears chronic (8) Alcohol abuse: Code(s): F10.10 - Alcohol abuse, uncomplicated Status: Acute Assessment and Plan: patient states he has not had any alcohol for last 30 days he is on folic acid and thiamine monitor this time (9) Electrolyte abnormality: Code(s): E87.8 - Other disorders of electrolyte and fluid balance, not elsewhere classified Status: Acute Assessment and Plan: replace low magnesium and phosphorus (10) Diarrhea: Code(s): R19.7 - Diarrhea, unspecified Status: Acute Assessment and Plan: gastroenterology is following. Giardia antigen is negative Cryptosporidium, stool WBC and other stool studies including culture and WBC have been sent and pending Stool C diff is ordered and pending this is likely from chronic pancreatitis. Will discuss with GI Additional Plan DVT prophylaxis - SCDs Stress ulcer prophylaxis - PPI Nutrition - regular diet Code Status - Full Code Transfer out of ICU today Subjective Date/linn
[2021-05-08] MEDS: LIPASE/AMYLASE/PROTEASE 12,000 UNITS CAP 1 CAP PO ×3 (09:29→17:36)
[2021-05-08] MEDS: THIAMINE HCL 200 MG/2 ML VIAL 100 MG IV PUSH (09:29)
[2021-05-08] MEDS: PANTOPRAZOLE SODIUM IV 40 MG VIAL IV PUSH ×2 (09:30→20:17)
[2021-05-08] MEDS: MAGNESIUM SULF 2 GM/WATER 50ML 2 GM/50 ML BAG IVPB (09:32)
[2021-05-08] MEDS: POTASSIUM PHOS,M-BASIC-D-BASIC 20 MMOL in SODIUM CHLORIDE 0.9% IV 250 ML 85.56 MMOL IVPB ×2 (10:35→15:01)
[2021-05-08] MEDS: FOLIC ACID 1 MG/0.2 ML INJ IV PUSH (10:35)
--- NOTE | 2021-05-08 10:44 | PCPTNOTE ---
Attempted to see this pt this a.m. for PT gloria. Pt requested that I return this p.m.
--- NOTE | 2021-05-08 11:24 | PCOTNOTE ---
Attempted OT evaluation, patient reports does not want to participate at this time and to come back in afternoon, RN aware. Will follow.
--- NOTE | 2021-05-08 11:52 | PCDIET ---
Nutrition Follow-Up Complete: Nutrition Diagnosis: Involuntary weight loss related to unknown etiology as evidenced by reported and documented significant weight loss. Nutrition Goal: Patient to consume 75% of meals/supplements or greater and maintain weight. Goal in progress. Patient was NPO yesterday, but ate 100% of dinner. Supplement order was changed to Ensure Compact after diet advanced; recommend resuming 8oz Ensure Enlive (350kcal, 20g protein) with meals. 2 gram sodium diet appropriate. Last recorded weight is 93.1 kg which is increased from last review, despite 5L paracentesis yesterday. Bowel Motility: BM x 1 today. Labs Reviewed: WBC (3.4), RBC (2.55), Hgb (8.4), Hct (24.9), Glu (119), Na (135), Alb (3.3), PO4 (1.7) Meds Noted: Albumin, Creon, Fortaz, Folic Acid, Protonix, Thiamine, Potassium Phosphate, Magnesium Sulfate Additional Notes: Stage II to sacrum. Maceration to scrotum. Will continue to monitor with same goal. Nutrition Monitoring and Evaluation: Follow up in 5 days.
--- NOTE | 2021-05-08 13:51 | PM.IMPN ---
Progress Note: A&P Assessment and Plan (1) Severe sepsis: Code(s): A41.9 - Sepsis, unspecified organism; R65.20 - Severe sepsis without septic shock Status: Acute (2) Hypotension: Code(s): I95.9 - Hypotension, unspecified Status: Acute (3) SBP (spontaneous bacterial peritonitis): Code(s): K65.2 - Spontaneous bacterial peritonitis Status: Acute (4) Chronic pancreatitis due to chronic alcoholism: Code(s): K86.0 - Alcohol-induced chronic pancreatitis; F10.20 - Alcohol dependence, uncomplicated Status: Acute (5) Decompensated hepatic cirrhosis: Code(s): K72.90 - Hepatic failure, unspecified without coma; K74.60 - Unspecified cirrhosis of liver Status: Acute (6) Pancreatic lesion: Code(s): K86.9 - Disease of pancreas, unspecified Status: Acute (7) Portal vein thrombosis: Code(s): I81 - Portal vein thrombosis Status: Chronic (8) Alcohol abuse: Code(s): F10.10 - Alcohol abuse, uncomplicated Status: Acute (9) Electrolyte abnormality: Code(s): E87.8 - Other disorders of electrolyte and fluid balance, not elsewhere classified Status: Acute (10) Diarrhea: Code(s): R19.7 - Diarrhea, unspecified Status: Acute Additional Plan 50yo male, alcoholic, cirrhotic, followed for pancreatic mass outpatient, presenting 05/03 with diarrhea, found to have sepsis related to SBP. Sepsis secondary to SBP: Hypotensive and in ICU for Levophed, however has been transitioned off, and MAPs holding in 80s, moving to floors later today. Cautious IV fluids in setting of decompensated liver cirrhosis, will continue Albumin Q6hr as he seems to be tolerating this well. Stool and Ascitic cultures no growth to date. Ceftazidime Q8hr. ID consulted. No kidney damage. Thrombocytopenia likely related to infection. Strep & Atypical Bacteremia: Blood cultures growing Streptococcus anginosus and Raoultella ornithinolytica - both broadly sensitive. Pt on Ceftazidime. Rpt cultures 05/05 negative so far. ID consulted today, appreciate recommendations on further workup & management. Normocytic Anemia: Hgb 8-10 over last few days. Follow pending anemia labs incl LDH haptoglobin, retic, iron etc. Pancreatic Lesion: Seen by GI, complicated lesion, walled-off necrosis and fistula vs adenocarcinoma. Will be followed outpt by pt GI specialist. Tumor markers still pending. Alcoholism, Chronic Pancreatitis, Liver Cirrhosis: on CIWA protocol. About 7 days since last drink, no current withdrawal symptoms. Continue panc enzyme supplements. Once medically stable can address EGD & possibly adding spironolactone. Lactulose as needed if concern for encephalopathy. AFP pending. Subjective Date/time seen: 05/08/21 13:51 no acute complaints resting comfortably in bed plan for transfer out of ICU today Review of Systems Review of Systems: All systems reviewed & are unremarkable except as noted in HPI and below Exam Const: General: no acute distress Neck: Neck: no JVD Resp: Effort & Inspection: normal respiratory effort Auscultation: clear to auscultation bilaterally Cardio: Rate: regular rate Rhythm: regular rhythm GI: Inspection: non-distended Objective Data Vital Signs Vital Signs: Vital Signs - 24 hr 05/07/21 14:00 05/07/21 15:23 05/07/21 16:00 Temperature Pulse Rate 87 89 85 Respiratory Rate 17 17 15 Blood Pressure 103/81 95/71 L Pulse Oximetry 99 99 98 05/07/21 17:55 05/07/21 18:00 05/07/21 20:00 Temperature 98.3 F Pulse Rate 106 H 106 H 105 H Respiratory Rate 23 H 22 H Blood Pressure 103/79 96/76 L Pulse Oximetry 100 100 05/07/21 22:00 05/08/21 00:00 05/08/21 02:00 Temperature 98.6 F Pulse Rate 99 103 H 101 H Respiratory Rate 21 H 21 H 22 H Blood Pressure 99/76 L 94/69 L 91/81 L Pulse Oximetry 100 99 98 05/08/21 04:00 05/08/21 05:56 05/08/21 08:00 Temperature 98.6 F 98.7 F Pulse Rate 106 H 104 H 111 H
--- NOTE | 2021-05-08 16:18 | WPDGIPROGNO ---
Progress Note: A&P Assessment and Plan (1) Severe sepsis: Code(s): A41.9 - Sepsis, unspecified organism; R65.20 - Severe sepsis without septic shock Status: Acute Assessment and Plan: improved with appropriate abx coverage Blood cultures + Streptococcus anginosus and Raoultella ornithinolytica- repeat cultures no growth. ID to see for more recommendations most likely source SBP, repeat paracentesis improved cell count (2) SBP (spontaneous bacterial peritonitis): Code(s): K65.2 - Spontaneous bacterial peritonitis Status: Acute Assessment and Plan: on medical treatment with iv abx and albumin repeat fluid sample better diuretics discontinued because severe sepsis and bacteremia (3) Decompensated hepatic cirrhosis: Code(s): K72.90 - Hepatic failure, unspecified without coma; K74.60 - Unspecified cirrhosis of liver Status: Acute Assessment and Plan: 2g na diet (4) Pancreatic lesion: Code(s): K86.9 - Disease of pancreas, unspecified Status: Acute Assessment and Plan: 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 will need follow-up with his GI doctor pending tumor markers still pending (5) Chronic pancreatitis due to chronic alcoholism: Code(s): K86.0 - Alcohol-induced chronic pancreatitis; F10.20 - Alcohol dependence, uncomplicated Status: Acute (6) Elevated liver enzymes: Code(s): R74.8 - Abnormal levels of other serum enzymes Status: Acute (7) Malnutrition: Code(s): E46 - Unspecified protein-calorie malnutrition Status: Acute Assessment and Plan: 2g na diet, nutritional support (8) Portal vein thrombosis: Code(s): I81 - Portal vein thrombosis Status: Chronic Assessment and Plan: chronic at least since 2019, can not get blood thinners because anemia, low plat[place], etc (9) Diarrhea: Code(s): R19.7 - Diarrhea, unspecified Status: Acute Assessment and Plan: on creon (10) Chronic anemia: Code(s): D64.9 - Anemia, unspecified Status: Acute Assessment and Plan: hb low but stable Subjective Date/time seen: 05/08/21 16:18 Interval history: clinically doing better, comfortable. Review of Systems Review of Systems: All systems reviewed & are unremarkable except as noted in HPI and below Exam Const: General: no acute distress and ill appearing chronically Other: frail HENMT: General nose exam: Normal nares present Other: cachectic Eyes: General: appearance normal, both eyes and all related structures Neck: Neck: supple Resp: Auscultation: clear to auscultation bilaterally Cardio: Rate: regular rate GI: GI Palp: Yes Soft to palpation and Yes Tenderness to palpation present (GI) (diffusely, no rebound) Percussion: Yes Fluid wave present (l) Auscultation: normal bowel sounds Skin: General skin exam: normal color Neuro: Speech: normal speech Extrem: General: pedal edema Psych: Mental Status: mental status grossly normal Objective Data Vital Signs Vital Signs: Vital Signs - 24 hr 05/07/21 17:55 05/07/21 18:00 05/07/21 20:00 Temperature 98.3 F Pulse Rate 106 H 106 H 105 H Respiratory Rate 23 H 22 H Blood Pressure 103/79 96/76 L Pulse Oximetry 100 100 05/07/21 22:00 05/08/21 00:00 05/08/21 02:00 Temperature 98.6 F Pulse Rate 99 103 H 101 H Respiratory Rate 21 H 21 H 22 H Blood Pressure 99/76 L 94/69 L 91/81 L Pulse Oximetry 100 99 98 05/08/21 04:00 05/08/21 05:56 05/08/21 08:00 Temperature 98.6 F 98.7 F Pulse Rate 106 H 104 H 111 H Respiratory Rate 18 20 23 H Blood Pressure 88/65 L 97/80 L 98/70 L Pulse Oximetry 96 100 98 05/08/21 10:00 05/08/21 12:00 05/08/21 14:00 Temperature 98.7 F Pulse Rate 101 H 103 H 105 H Respiratory Rate 22 H 23 H 22 H Blood Pressure 98/78 L 92/69 L 103/74 Pulse Oximetry 98 98 98 Intake/Output Intake/Output
[2021-05-08 16:26] LABS: Lactate Dehydrogenase 225 U/L (313-618)
[2021-05-08 17:21] LABS: Iron 28 ug/dL (49-181)
[2021-05-08 17:31] LABS: Folic Acid 13.3 ng/mL (2.76->20); Percent Iron Saturation 43 % (20-50)
[2021-05-08 21:00] LABS: Amylase Peritoneal Fluid 11 U/L
[2021-05-09] VITALS (9 sets, daily range): BP systolic 91–148; BP diastolic 60–89; PULSE 88–122; RESP 18–23; TEMP 36.8–37.1; O2SAT 94–97
[2021-05-09 00:23] LABS: CA-125 462 U/mL (<35)
[2021-05-09] MEDS: ALBUMIN HUMAN 25% 25 GM/100 ML 100 ML IVPB ×3 (01:08→12:06)
[2021-05-09 04:50] LABS: Basophils Percent Auto 0.6 % (0.2-1.2); Eosinophils Percent Auto 0.3 % (0-4.4); Hemoglobin 7.1 g/dL (14.0-18.0); Immature Platelet Fraction Pct 4.4 % (0.9-11.2); Lymphocytes Absolute Auto 0.87 K/mm3 (0.9-3.2); Lymphocytes Percent Auto 25.6 % (18.3-44.2); Mean Corpuscular Hemoglobin 32.4 pg (26-34); Mean Corpuscular Volume 95.4 fl (80-100); Mean Platelet Volume 10.5 fl (7.4-10.4); Monocytes Absolute Auto 0.7 K/mm3 (0.1-0.6); Monocytes Percent Auto 20.6 % (2.6-8.5); Neutrophils Absolute Auto 1.8 K/mm3 (1.3-6.7); Neutrophils Percent Auto 52.9 % (45.5-73.1); Platelet Count Result 55 k/mm3 (150-375); Red Blood Count 2.19 M/mm3 (4.6-6.20); Red Cell Distribution Width 18.4 % (11.5-14.5); White Blood Count 3.4 K/mm3 (4.5-10.0)
[2021-05-09 05:02] LABS: Alanine Aminotransferase 13 U/L (4-50); Albumin Level 3.4 g/dL (3.5-5.1); Alkaline Phosphatase 95 U/L (38-126); Anion Gap 12 mmol/L (8-16); Aspartate Amino Transferase 41 U/L (17-59); Bilirubin,Total 3.4 mg/dL (0.2-1.3); Blood Urea Nitrogen 3 mg/dL (9-20); Carbon Dioxide 21 mmol/L (22-30); Chloride 103 mmol/L (98-107); Estimated CRCL calculation 195 ml/min; Estimated Glomerular Filt Rate > 60; Glucose 109 mg/dL (65-110); Magnesium 1.9 mg/dL (1.6-2.3); Phosphorus 2.4 mg/dL (2.5-4.5); Potassium 3.6 mmol/L (3.4-5.0); Sodium 136 mmol/L (137-145)
[2021-05-09 05:23] LABS: Hematocrit 20.9 % (42.0-52.0)
[2021-05-09 05:25] LABS: Platelet Estimate Decreased (Adequate)
[2021-05-09 05:26] LABS: Anisocytosis 1+ (NORMAL); Hypochromasia 1+ (NORMAL)
[2021-05-09 05:33] LABS: Glucose Peritoneal Fluid 149 mg/dL; LDH Peritoneal Fluid 54 U/L (<63); Total Protein Peritoneal Fluid <3.0 g/dL
[2021-05-09 06:38] LABS: CA 19-9 37 U/mL (<34)
[2021-05-09] MEDS: PANTOPRAZOLE SODIUM IV 40 MG VIAL IV PUSH (09:12)
[2021-05-09] MEDS: THIAMINE HCL 200 MG/2 ML VIAL 100 MG IV PUSH (09:15)
[2021-05-09] MEDS: FOLIC ACID 1 MG/0.2 ML INJ IV PUSH (09:16)
--- NOTE | 2021-05-09 12:05 | WPDINFPN2 ---
Progress Note: A&P Assessment and Plan (1) Polymicrobial bacterial infection: Code(s): A49.9 - Bacterial infection, unspecified Status: Acute Assessment and Plan: bacteremia with infection, suspected peritoneal source REC Ceftazidime through 05/10, then stop. But he tells me he is leaving today; if so, cefdinir 300 mg bid through 05/10 is an option but not my recommendation. Call if Qs Subjective Date/time seen: 05/09/21 12:05 Objective Data Vital Signs Vital Signs: Vital Signs - 24 hr 05/08/21 14:00 05/08/21 16:00 05/08/21 18:00 Temperature 37.1 C Pulse Rate 105 H 105 H 115 H Respiratory Rate 22 H 24 H Blood Pressure 103/74 90/70 L Pulse Oximetry 98 97 05/08/21 20:00 05/08/21 22:00 05/09/21 00:00 Temperature 36.7 C 36.8 C Pulse Rate 101 H 106 H 116 H Respiratory Rate 23 H 20 Blood Pressure 100/77 105/69 Pulse Oximetry 98 97 05/09/21 02:00 05/09/21 04:00 05/09/21 06:00 Temperature Pulse Rate 110 H 107 H 107 H Respiratory Rate 23 H Blood Pressure 91/60 L Pulse Oximetry 94 05/09/21 08:00 05/09/21 10:00 Temperature 37.1 C Pulse Rate 115 H 88 Respiratory Rate 21 H Blood Pressure 101/75 Pulse Oximetry 94 Intake/Output Intake/Output: Intake & Output 05/06/21 05/07/21 05/08/21 05/09/21 23:59 23:59 23:59 23:59 Intake Total 3203.333 3450 2358.3334 490 Output Total 1100 5700 825 400 Balance 2103.333 2250 1533.3334 90 Meds/Results Medications: Active Medications Generic Name Dose Route Start Last Admin Trade Name Freq PRN Reason Stop Dose Admin Acetaminophen 1,000 mg 05/05/21 07:46 Acetaminophen 500 Mg Tablet PO Q8H PRN Mild Pain (1-3) or Fever Lipase/Protease/Amylase 1 cap 05/06/21 12:00 05/08/21 17:36 Lipase/Amylase/Protease 12,000 Units Cap PO 1 cap TIDWM DEL Administration Folic Acid 1 mg 05/10/21 09:00 Folic Acid 1 Mg Tablet PO DAILY [facility] Ceftazidime 2 gm in 50 mls @ 100 mls/hr 05/04/21 12:00 05/09/21 06:41 Fortaz 2 Gm/D5w 50 Ml IVPB Infused Q8H DEL Infusion Albumin Human 100 mls @ 60 mls/hr 05/05/21 12:00 05/09/21 07:00 Albutein IVPB Infused Q6HR DEL Infusion Lorazepam 0.5 mg 05/04/21 00:01 Lorazepam Inj (*Crx) 2 Mg/Ml Vial IV PUSH Q6H PRN Anxiety Miconazole Nitrate 1 applic 05/06/21 09:00 05/09/21 09:15 Miconazole 2% Antifungal Ointment 56 Gm TOPICAL 1 applic Q12HR DEL Administration Ondansetron HCl 4 mg 05/03/21 23:31 Ondansetron Inj 4 Mg/2 Ml Vial IV PUSH Q4H PRN Nausea And Vomiting Pantoprazole Sodium 40 mg 05/04/21 09:00 05/09/21 09:12 Pantoprazole Sodium Iv 40 Mg Vial IV PUSH 40 mg Q12HR DEL Administration Thiamine HCl 100 mg 05/04/21 09:00 05/09/21 09:15 Thiamine Hcl 200 Mg/2 Ml Vial IV PUSH 100 mg QAM DEL Administration Radiology Results: ITS Impressions Chest X-Ray 05/03/21 14:26 IMPRESSION: 1. Moderate-sized right pleural effusion again seen. 2. Airspace opacities at right lung base, likely atelectasis. Abdomen/Pelvis CT 05/03/21 15:02 IMPRESSION: 1. Cirrhosis of the liver with diffuse fatty infiltration. Chronic portal vein thrombosis with cavernous transformation. 2: Moderate ascites. 3: Complex ill-defined cystic mass of the pancreatic head, suspicious for adenocarcinoma. 4: Moderate right pleural effusion with underlying compressive atelectasis. Paracentesis Ultrasound 05/07/21 13:38 IMPRESSION: 1. Successful ultrasound-guided paracentesis yielding 5000 mL of clear, yellow fluid. Labs Labs: Laboratory Results - last 24 hr 05/04/21 05/06/21 05/08/21 11:02 04:20 15:42 WBC RBC Hgb Hct MCV MCH MCHC RDW Plt Count MPV Immature Gran % (Auto) Neut % (Auto) Lymph % (Auto) [place] % (Auto) Eos % (Auto) Baso % (Auto) Lymph # (Auto) [place] # (Auto) Eos # (Auto) Baso # (Auto) Abs Immat Gran (auto
[2021-05-09] MEDS: LIPASE/AMYLASE/PROTEASE 12,000 UNITS CAP 1 CAP PO ×2 (12:06→12:11)
--- NOTE | 2021-05-09 13:12 | PM.IMPN ---
Progress Note: A&P Assessment and Plan (1) Severe sepsis: Code(s): A41.9 - Sepsis, unspecified organism; R65.20 - Severe sepsis without septic shock Status: Acute Assessment and Plan: Patient is suspected to be having SBP which is the source of sepsis. his blood culture 05/03 positive for Raoultella ornithinolytica Streptococcus anginosus on 2 separate sets -repeat set of blood cultures was sent on 05/05 and is negative till date - his lactic acid level has cleared and has normalized after IV fluids - he is not requiring vasopressors at this time conservative IV fluid strategy due to overall volume overload and 3rd spacing in the form of ascites continue IV albumin continue ceftazidime (2) Hypotension: Code(s): I95.9 - Hypotension, unspecified Status: Acute Assessment and Plan: Resolved. Likely secondary to sepsis and fluid shift from paracentesis monitor closely (3) SBP (spontaneous bacterial peritonitis): Code(s): K65.2 - Spontaneous bacterial peritonitis Status: Acute Assessment and Plan: patient underwent paracentesis with 4 L fluid was removed on 05/04 fluid studies reviewed and showed increased neutrophilic concentration although Total counts were not done repeat paracentesis was done on 05/07 and 5 L fluid was removed. The cell counts appear much better on the fluid although patient has been on antibiotics for many days continue ceftazidime Appreciate ID evaluation and recommendation, continue IV ceftazidime through 05/10, then stop. If he goes home prior to that give cefdinir 300 mg bid through 05/10 is an option but not infectious disease recommendation (4) Chronic pancreatitis due to chronic alcoholism: Code(s): K86.0 - Alcohol-induced chronic pancreatitis; F10.20 - Alcohol dependence, uncomplicated Status: Acute Assessment and Plan: currently pain-free Continue pancreatic enzyme replacement which will be increased to t.i.d. with meals (5) Decompensated hepatic cirrhosis: Code(s): K72.90 - Hepatic failure, unspecified without coma; K74.60 - Unspecified cirrhosis of liver Status: Acute Assessment and Plan: ammonia level and liver enzymes are normal bilirubin is improving (6) Pancreatic lesion: Code(s): K86.9 - Disease of pancreas, unspecified Status: Acute Assessment and Plan: patient has known complicated pancreatic lesion management will be deferred to his primary GI team at [facility] tumor markers : CA 19-9 and CA 125 are elevated (7) Portal vein thrombosis: Code(s): I81 - Portal vein thrombosis Status: Chronic Assessment and Plan: known chronic portal vein thrombosis and patient was discontinued from anticoagulation. I am not aware of all the details but patient was told not to take Xarelto by his physician at [facility]. It appears chronic (8) Alcohol abuse: Code(s): F10.10 - Alcohol abuse, uncomplicated Status: Acute Assessment and Plan: patient states he has not had any alcohol for last 30 days he is on folic acid and thiamine monitor this time (9) Electrolyte abnormality: Code(s): E87.8 - Other disorders of electrolyte and fluid balance, not elsewhere classified Status: Acute Assessment and Plan: replace low phosphorus (10) Diarrhea: Code(s): R19.7 - Diarrhea, unspecified Status: Acute Assessment and Plan: gastroenterology is following. Giardia antigen is negative Cryptosporidium, stool WBC and other stool studies including culture and WBC have been sent and pending Stool C diff is ordered and pending this is likely from chronic pancreatitis. Will discuss with GI Subjective Date/time seen: 05/09/21 13:12 Interval history: 05/09/2021: Patient awake, alert, sitting up in chair having his breakfast. Denies any chest pain, shortness of breath, abdominal pain, nausea vomiting a
--- NOTE | 2021-05-09 13:59 | CONS_ITS ---
DATE OF CONSULTATION: 05/09/2021 REASON FOR CONSULTATION: Polymicrobial bacteremia. HISTORY OF PRESENT ILLNESS: A 50-year-old male who was admitted to the hospital on May 03 with diarrhea and abdominal pain. He was found to have hepatic insufficiency. Blood cultures were collected. When these returned positive on the , he was started on ceftazidime and remains on that now. Blood cultures were subsequently identified as below. I was consulted yesterday afternoon for further advice. The patient denies diarrhea currently, though his bowel movements are not entirely formed. He denies abdominal pain, nausea, or vomiting. He has lost weight and has not been able to explain why as his appetite remains good and he takes vitamins and calorie supplements. He has never had previous bloodstream infection to his knowledge and denies any recent antibiotics for any purpose. No fever, chills, or sweats prior to admission. ALLERGIES: NONE KNOWN. AMOXICILLIN CAUSED CONFUSION. PRESENT MEDICATIONS: No immunosuppressants. HABITS: Alcohol to excess. No illicit drugs. No tobacco. No marijuana. Last alcohol use was 1 week prior to admission. PAST MEDICAL HISTORY: In addition to the above, tonsillectomy, ear surgery, chronic pancreatitis, GERD, known cirrhosis, chronic anemia, ascites. REVIEW OF SYSTEMS: Constitutional, GI, , respiratory, skin otherwise negative. FAMILY HISTORY: Alcoholism. SOCIAL HISTORY: He is , two sons. Works. PHYSICAL EXAMINATION: GENERAL: Cachectic male, in no acute distress. VITAL SIGNS: His temperature on arrival normal, by the following day T-max up to 38.2, and on hospital day 3 was up to 39.0, has since been afebrile consistently, 115, 21, 94%, 101/75. SKIN: Warm and dry. He is jaundiced. EENT: Icteric. Pupils equal, round. The oral mucosa is dry. Teeth in fair repair. NECK: No masses or thyromegaly. LUNGS: Diminished breath sounds, otherwise clear to auscultation and percussion. CARDIAC: Tachycardic, regular rate. No murmur or gallop. ABDOMEN: Distended, nontender. Normal bowel sounds. EXTREMITIES: No clubbing or cyanosis. He has 1+ ankle edema that is pitting. LABORATORY DATA: Blood cultures from arrival, one set with Strep anginosus. The other set with raoultella. Stool culture not sent. Paracentesis on the day after admission, no growth final, Gram stain, no organisms, no white cells on smear. Repeat blood cultures May 05, no growth after 4 days incubation. From the , peritoneal fluid was hazy, 54% PMNs. Cell count could not be performed. Repeat on the , 1354 red cells, 167 white cells, 22% PMNs. White count 3.4, hemoglobin down to 7.1, platelets are 55. He has hyponatremia which is recovering. BUN and creatinine both low. Glucose normal. Phosphorus low, magnesium normal. Iron and TIBC both low. Bilirubin 3.4. Transaminases normal. Albumin 3.4. His hepatitis panel was also nonreactive, 02/20/2021. RADIOLOGY: Abdomen and pelvic CT on admission, cirrhosis, ascites, portal vein thrombosis, cystic mass, pancreatic head, pleural effusion. ASSESSMENT: 1. Polymicrobial bacteremia. Consider spontaneous bacterial peritonitis versus biliary tract infection due to the pancreatic abnormality seen on CT. He has had microbiologic cure from the bloodstream. 2. Cirrhosis. 3. Chronic ascites. 4. Iron deficiency anemia and may have other etiologies as well. RECOMMENDATIONS: 1. Ceftazidime appropriate. I will continue through all doses on May 10. 2. But patient tells me he may be leaving today. If that is the case, I discussed with him that oral antibiotics are less potent, but if he does leave, cefdinir 300 mg b.i.d. same stop date would be probably effective. 3. Arden valdez
--- NOTE | 2021-05-09 14:36 | PCDIET ---
ICU Rounding Note: Patient consumed an average of 40% of meals on 05/08/21 on low sodium diet. Does take Ensure Enlive which is being provided with meals. Last recorded weight is 93.4kg which is stable with last review. +I/O. Bowel Motility: Last documented BM on 05/08/21 x 1. Labs Reviewed: WBC (3.4), RBC (2.19), Hgb (7.1), Hct (20.9), BUN (3), Cr (0.4), PO4 (2.4) Meds Noted: Albumin, Creon, Fortaz, Folic Acid, Thiamine, Protonix Additional Notes: Iron panel noted. Suspect related to chronic disease. Recommend continued phosphorus replacement, as medically appropriate. No change in skin reported. Following daily in ICU rounds. Assessing/reassessing every 5 days.
--- NOTE | 2021-05-09 16:45 | PM.DS ---
DS: Admitting Diagnosis Discharge Date May 09 Admitting Diagnosis sepsis DS: Discharge Diagnosis Discharge Diagnosis (1) SBP (spontaneous bacterial peritonitis): Code(s): K65.2 - Spontaneous bacterial peritonitis Status: Acute (2) Severe sepsis: Code(s): A41.9 - Sepsis, unspecified organism; R65.20 - Severe sepsis without septic shock Status: Acute DS: Summary Hospital Course Reason for hospitalization: Sepsis Hospital Course: patient is a 50-year-old male alcoholic and cirrhotic followed outpatient for a pancreatic mass presenting on May 03 [facility] with diarrhea. Found to have sepsis related to spontaneous bacterial peritonitis. Hypertensive in the ICU for pressors transitioned off however blood pressure was given to keep blood. Based stool and ascitic cultures PE ortega being on ceftazidime which will treat the growing in the blood as he also bacteremia. Patient also has normocytic anemia pending some lab studies anemia. There are several active problems are being addressed bacteremia spontaneous bacterial peritonitis sepsis anemia, decompensated liver cirrhosis. However patient says that he wants to go home. Told him in no uncertain terms this could mean rapid decompensation and within few days discharge and he said he understands this. He is of sound mind, and was able convey the risk including and set is nothing we can do or say that will make him stay. I offered him at least to get some oral antibiotics as an outpatient, even though this is suboptimal as the systemic absorption is not as good, and organisms that are cultured not going to be susceptible to PO antibiotics. He understands in willing to take p.o. antibiotic course outpatient as opposed to staying here. I was present this discussion as the nursing staff as has same discussion with him the against medical advice form was presented to him, he signed it, and left. Status at Discharge Functional status at discharge: bed bound Overall status at discharge: patient is not back to baseline Time Spent with Patient Time attestation: Total time spent providing and/or coordinating discharge services: Time spent: Less than 30 minutes Exam Const: General: no acute distress Resp: Effort & Inspection: normal respiratory effort Auscultation: clear to auscultation bilaterally Cardio: Rate: regular rate Rhythm: regular rhythm GI: GI Palp: Yes Soft to palpation and No Tenderness to palpation present (GI) DS: Data Data Completed and Pending Completed studies during hospitalization: Pending at discharge 05/03/21 23:34 Cytology [PTH] Routine Labs on day of discharge: Labs from last 24 hours 05/09/21 05/09/21 05/08/21 04:33 04:33 15:42 WBC 3.4 L RBC 2.19 L Hgb 7.1 L Hct 20.9 L* MCV 95.4 MCH 32.4 MCHC 34.0 RDW 18.4 H Plt Count 55 L MPV 10.5 H Immature Gran % (Auto) 0.0 Neut % (Auto) 52.9 Lymph % (Auto) 25.6 [place] % (Auto) 20.6 H Eos % (Auto) 0.3 Baso % (Auto) 0.6 Lymph # (Auto) 0.87 L [place] # (Auto) 0.7 H Eos # (Auto) 0.0 Baso # (Auto) 0.0 Abs Immat Gran (auto) 0.00 Absolute Neuts (auto) 1.8 Absolute Nucleated RBC 0.0 Nucleated RBC % 0.0 Platelet Estimate Decreased % Immature Plt Fraction 4.4 Hypochromasia 1+ Anisocytosis 1+ Sodium 136 L Potassium 3.6 Chloride 103 Carbon Dioxide 21 L Anion Gap 12 BUN 3 L Creatinine 0.40 L Estim Creat Clear Calc 195 Estimated GFR > 60 Glucose 109 Calcium 9.0 Phosphorus 2.4 L Magnesium 1.9 Iron TIBC % Saturation Ferritin Total Bilirubin 3.4 H AST 41 ALT 13 Alkaline Phosphatase 95 Total Protein 6.0 L Albumin 3.4 L CA 19-9 Antigen CA 125 Antigen Vitamin B12 999.0 H Folate 13.3 TSH (Reflex) Peritoneal Tot Protein Peritoneal LDH Peritoneal Glucose Peritoneal Amylase
--- NOTE | 2021-05-09 16:51 | PC.NURSE ---
[id number]-DR. HUANG HERE TO TALK TO PATIENT. EXPLAINED RISK OF LEAVING AMA. PATIENT STATES HE KNOWS THE RISK AND CHOOSES TO LEAVE.
--- NOTE | 2021-05-09 16:55 | WPDGIPROGNO ---
Progress Note: A&P Assessment and Plan (1) Severe sepsis: Code(s): A41.9 - Sepsis, unspecified organism; R65.20 - Severe sepsis without septic shock Status: Acute Assessment and Plan: improved with appropriate abx coverage, ID recommending at least one more day of iv antibiotic- patient is adamant to go home he also will need termination clerk prophylaxis antibiotics since had SBP this time Blood cultures + Streptococcus anginosus and Raoultella ornithinolytica- repeat cultures no growth. most likely source SBP, repeat paracentesis improved cell count (2) SBP (spontaneous bacterial peritonitis): Code(s): K65.2 - Spontaneous bacterial peritonitis Status: Acute Assessment and Plan: improved with medical treatment no more pain and tolerating diet (3) Decompensated hepatic cirrhosis: Code(s): K72.90 - Hepatic failure, unspecified without coma; K74.60 - Unspecified cirrhosis of liver Status: Acute Assessment and Plan: 2g na diet (4) Pancreatic lesion: Code(s): K86.9 - Disease of pancreas, unspecified Status: Acute Assessment and Plan: 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 will need follow-up with his GI doctor (patient to call for follow-up) (5) Chronic pancreatitis due to chronic alcoholism: Code(s): K86.0 - Alcohol-induced chronic pancreatitis; F10.20 - Alcohol dependence, uncomplicated Status: Acute (6) Elevated liver enzymes: Code(s): R74.8 - Abnormal levels of other serum enzymes Status: Acute (7) Malnutrition: Code(s): E46 - Unspecified protein-calorie malnutrition Status: Acute Assessment and Plan: 2g na diet, nutritional support (8) Portal vein thrombosis: Code(s): I81 - Portal vein thrombosis Status: Chronic Assessment and Plan: chronic at least since 2019, can not get blood thinners because anemia, low [place], etc (9) Diarrhea: Code(s): R19.7 - Diarrhea, unspecified Status: Acute Assessment and Plan: on creon (10) Chronic anemia: Code(s): D64.9 - Anemia, unspecified Status: Acute Assessment and Plan: today hb down to mid 7's but RN did not report signs of bleeding continue to monitor and repeat h/h in am Subjective Date/time seen: 05/09/21 16:55 Interval history: patient says that is going home today but still needs more iv antibiotics, eating ok Review of Systems Review of Systems: All systems reviewed & are unremarkable except as noted in HPI and below Exam Const: General: no acute distress and ill appearing chronically Other: frail HENMT: General nose exam: Normal nares present Other: cachectic Eyes: General: appearance normal, both eyes and all related structures Neck: Neck: supple Resp: Auscultation: clear to auscultation bilaterally Cardio: Rate: regular rate GI: GI Palp: Yes Soft to palpation and No Guarding due to palpation present (GI) Percussion: Yes Fluid wave present (l) Auscultation: normal bowel sounds Skin: General skin exam: normal color Neuro: Speech: normal speech Extrem: General: pedal edema Psych: Mental Status: mental status grossly normal Objective Data Vital Signs Vital Signs: Vital Signs - 24 hr 05/08/21 18:00 05/08/21 20:00 05/08/21 22:00 Temperature 98.0 F Pulse Rate 115 H 101 H 106 H Respiratory Rate 23 H Blood Pressure 100/77 Pulse Oximetry 98 05/09/21 00:00 05/09/21 02:00 05/09/21 04:00 Temperature 98.2 F Pulse Rate 116 H 110 H 107 H Respiratory Rate 20 23 H Blood Pressure 105/69 91/60 L Pulse Oximetry 97 94 05/09/21 06:00 05/09/21 08:00 05/09/21 10:00 Temperature 98.8 F Pulse Rate 107 H 115 H 88 Respiratory Rate 21 H Blood Pressure 101/75 Pulse Oximetry 94 05/09/21 12:00 05/09/21 14:00 05/09/21 16:00 Temperature Pulse Rate 120 H 122 H 101 H Respiratory Rate 20 18 Bl
[2021-05-10 11:06] LABS: Albumin Peritoneal Fluid 0.4 g/dL
[2021-05-10 17:11] LABS: Alpha Fetoprotein Tumor Marker 2.2 ng/mL (<6.1)
[2021-05-12 16:53] LABS: Haptoglobin 69 mg/dL (43-212)
== END 2021-05-09 17:45 | disposition left against medical advice (07) | DRG 871 ==
LOC: ANHED 17:08 → ANHIMU 18:41 → ANH3MEDSUR 05-04 16:04 → ANHIMU 05-05 07:38 → ANHICU 05-06 12:13 → ANHIMU 05-10 10:36
PROVIDERS: Emergency Medicine; Emergency Medicine Emergency Medical Services; Internal Medicine; Internal Medicine Gastroenterology; Nurse Practitioner; Admitting Provider Internal Medicine; Emergency Provider General Practice; PCP Family Medicine; Visit Provider Internal Medicine
DX: A41.9 Sepsis, unspecified organism (principal); K65.2 Spontaneous bacterial peritonitis; I81 Portal vein thrombosis; K72.00 Acute and subacute hepatic failure without coma; E46 Unspecified protein-calorie malnutrition; K86.0 Alcohol-induced chronic pancreatitis; E87.1 Hypo-osmolality and hyponatremia; B95.4 Other streptococcus as the cause of diseases classified elsewhere; B96.89 Other specified bacterial agents as the cause of diseases classified elsewhere; R65.20 Severe sepsis without septic shock; K70.31 Alcoholic cirrhosis of liver with ascites; F10.20 Alcohol dependence, uncomplicated; D69.59 Other secondary thrombocytopenia; K86.9 Disease of pancreas, unspecified; E87.6 Hypokalemia; D50.9 Iron deficiency anemia, unspecified; Z68.27 Body mass index [BMI] 27.0-27.9, adult
CPT/HCPCS: 36415; 49083; 71045; 74177; 80048; 80053; 80074; 80307; 81001; 82040; 82042; 82105; 82140; 82150; 82274; 82607; 82728; 82746; 82945; 83010; 83540; 83550; 83605; 83615; 83690; 83735; 84100; 84132; 84157; 84443; 85025; 85027; 85055; 85610; 85730; 86301; 86304; 87040; 87045; 87070; 87075; 87076; 87077; 87186; 87205; 87269; 87427; 88104; 88108; 88305; 89051; 93005; 96361; 96365; 96366; 96367; 96375; 96376; 97161; 97165; 99285; A9270; C9113; G0378; J0131; J0713; J2405; J3411; J3430; J3475; J3480; J7030; J7050; J7120; P9047; Q9967